=== PATIENT | male | born 1955 | race Caucasian/White ===

== ENCOUNTER 2020-07-01 06:52 | Outpatient (REF) | payer MEDICARE, SELFPAY ==
[2020-07-01 11:24] LABS: Hematocrit 47.7 % (42-52); Hemoglobin 15.8 g/dl (14.0-18.0); Mean Corpuscular HGB Conc 33.1 g/dl (31.0-36.0); Mean Corpuscular Volume 90.7 fL (80-98); Mean Platelet Volume 11.9 fL (9.4-12.4); Platelet Count 243 X10*3/uL (160-400); Red Blood Count 5.26 X10*6/uL (4.60-5.80); Red Cell Distribution Width 12.9 % (11.0-16.0); White Blood Count 9.1 X10*3/uL (4.8-10.8)
[2020-07-01 12:03] LABS: Alanine Aminotransferase 24 U/L (0-40); Albumin Level 4.5 g/dL (3.5-5.0); Alkaline Phosphatase 66 U/L (39-117); Anion Gap 15 (12-20); Aspartate Amino Transferase 20 U/L (5-37); Blood Urea Nitrogen 14 mg/dL (9-16); Calcium 9.5 mg/dL (8.4-10.2); Carbon Dioxide 26 mmol/L (22-29); Chloride 107 mmol/L (96-108); Cholesterol 126 mg/dL; Estimated Glomerular Filt Rate > 60; Glucose Fasting 93 mg/dL (60-99); HDL Cholesterol 37 mg/dL; LDL Cholesterol Calculated 72 mg/dl; Potassium 4.2 mmol/L (3.3-5.1); Sodium 144 mmol/L (135-145); Total Protein 6.8 g/dL (6.5-8.0); Triglycerides 85 mg/dL
== END 2020-07-01 06:53 | disposition home or self-care (01) ==
LOC: HO.HMGCLDS 06:52
PROVIDERS: PCP Internal Medicine; Visit Provider Internal Medicine
DX: E78.5 Hyperlipidemia, unspecified (principal); I10 Essential (primary) hypertension; I48.91 Unspecified atrial fibrillation
CPT/HCPCS: 36415; 80053; 80061; 85027

== ENCOUNTER 2022-02-17 07:56 | Outpatient (REF) | payer MEDICARE, SELFPAY ==
[2022-02-17 11:25] LABS: MANUAL DIFF FLAG NO
[2022-02-17 11:45] LABS: Basophils Absolute Auto 0.1 X10*3/uL (0.0-0.2); Basophils Percent Auto 0.6 % (0-2); Eosinophils Absolute Auto 0.1 X10*3/uL (0.0-0.4); Eosinophils Percent Auto 1.2 % (0-4); Hematocrit 45.6 % (42.0-52.0); Hemoglobin 15.2 g/dl (14.0-18.0); Imm Gran Abs Auto 0.02 X10*3/uL (0.00-0.03); Imm Gran Pct Auto 0.3 % (0.0-0.4); Lymphocytes Absolute Auto 2.7 X10*3/uL (1.2-4.9); Lymphocytes Percent Auto 35.2 % (20-40); Mean Corpuscular HGB Conc 33.3 g/dl (31.0-36.0); Mean Corpuscular Hemoglobin 30.6 pg (27.0-33.0); Mean Corpuscular Volume 91.9 fL (80.0-98.0); Mean Platelet Volume 11.5 fL (9.4-12.4); Monocytes Absolute Auto 0.8 X10*3/uL (0.1-1.2); Neutrophils Absolute Auto 4.1 x10*3/uL (2.0-8.3); Neutrophils Percent Auto 52.7 % (45-73); Platelet Count 248 X10*3/uL (160-400); Red Blood Count 4.96 X10*6/uL (4.60-5.80); White Blood Count 7.7 X10*3/uL (4.8-10.8)
[2022-02-17 12:15] LABS: Alanine Aminotransferase 20 U/L (0-40); Albumin Level 4.3 g/dL (3.5-5.0); Alkaline Phosphatase 51 U/L (39-117); Anion Gap 16 (12-20); Aspartate Amino Transferase 19 U/L (5-37); Bilirubin Total 0.5 mg/dL (0.0-1.0); Blood Urea Nitrogen 14 mg/dL (9-16); Calcium 9.3 mg/dL (8.4-10.2); Carbon Dioxide 25 mmol/L (22-29); Chloride 106 mmol/L (96-108); Cholesterol 134 mg/dL; Estimated Glomerular Filt Rate > 60; Glucose Fasting 105 mg/dL (60-99); HDL Cholesterol 41 mg/dL; LDL Cholesterol Calculated 79 mg/dl; Potassium 4.9 mmol/L (3.3-5.1); Sodium 142 mmol/L (135-145); Total Protein 6.7 g/dL (6.5-8.0); Triglycerides 72 mg/dL
== END 2022-02-17 07:57 | disposition home or self-care (01) ==
LOC: HO.HMGCLDS 07:56
PROVIDERS: PCP Internal Medicine; Visit Provider Internal Medicine
DX: Z12.5 Encounter for screening for malignant neoplasm of prostate (principal); N40.0 Benign prostatic hyperplasia without lower urinary tract symptoms; E78.5 Hyperlipidemia, unspecified; I10 Essential (primary) hypertension
CPT/HCPCS: 36415; 80053; 80061; 84153; 85025

== ENCOUNTER 2022-12-25 08:45 | Outpatient (REF) | payer MEDICARE, SELFPAY ==
[2022-12-25 11:27] LABS: MANUAL DIFF FLAG NO
[2022-12-25 12:03] LABS: Basophils Percent Auto 0.5 % (0-2); Eosinophils Absolute Auto 0.1 X10*3/uL (0.0-0.4); Eosinophils Percent Auto 1.1 % (0-4); Hematocrit 48.5 % (42.0-52.0); Hemoglobin 15.8 g/dl (14.0-18.0); Imm Gran Abs Auto 0.03 X10*3/uL (0.00-0.03); Imm Gran Pct Auto 0.4 % (0.0-0.4); Lymphocytes Absolute Auto 2.4 X10*3/uL (1.2-4.9); Lymphocytes Percent Auto 28.9 % (20-40); Mean Corpuscular HGB Conc 32.6 g/dl (31.0-36.0); Mean Corpuscular Hemoglobin 29.8 pg (27.0-33.0); Mean Corpuscular Volume 91.5 fL (80.0-98.0); Mean Platelet Volume 11.4 fL (9.4-12.4); Monocytes Absolute Auto 0.7 X10*3/uL (0.1-1.2); Monocytes Percent Auto 8.6 % (2-11); Neutrophils Percent Auto 60.5 % (45-73); Platelet Count 229 X10*3/uL (160-400); Red Cell Distribution Width 13.1 % (11.0-16.0); White Blood Count 8.3 X10*3/uL (4.8-10.8)
[2022-12-25 12:42] LABS: Alanine Aminotransferase 21 U/L (0-40); Albumin Level 4.4 g/dL (3.5-5.0); Alkaline Phosphatase 58 U/L (39-117); Anion Gap 12 (12-20); Aspartate Amino Transferase 20 U/L (5-37); Bilirubin Total 0.7 mg/dL (0.0-1.0); Blood Urea Nitrogen 11 mg/dL (9-16); Calcium 10.3 mg/dL (8.4-10.2); Carbon Dioxide 26 mmol/L (22-29); Chloride 109 mmol/L (96-108); Cholesterol 125 mg/dL (<200); Estimated Glomerular Filt Rate > 60; Glucose Fasting 108 mg/dL (60-99); HDL Cholesterol 46 mg/dL (>40); LDL Cholesterol Calculated 66 mg/dL (<100); Sodium 142 mmol/L (135-145); Total Protein 7.3 g/dL (6.5-8.0); Triglycerides 69 mg/dL (<150)
== END 2022-12-25 08:46 | disposition home or self-care (01) ==
LOC: HO.HMGCLDS 08:45
PROVIDERS: PCP Internal Medicine; Visit Provider Internal Medicine
DX: Z00.00 Encounter for general adult medical examination without abnormal findings (principal); I10 Essential (primary) hypertension; I48.91 Unspecified atrial fibrillation; E78.5 Hyperlipidemia, unspecified
CPT/HCPCS: 36415; 80053; 80061; 85025

== ENCOUNTER 2022-12-26 07:51 | Outpatient (AMB) | payer MEDICARE, SELFPAY ==
[2022-12-26 08:00] VITALS: BP 124/70; PULSE 75; O2SAT 98; BMI 33.5
--- NOTE | 2022-12-26 08:00 | A.OFFPC_ITS ---
Vital Signs 12/26/22 08:00 Height 6 ft Weight 247 lb BMI 33.5 BP 124/70 Blood Pressure Location Lt brachial Position Sitting Pulse 75 Pulse Source Pulse Oximeter Pulse Oximetry (%) 98 Oxygen Delivery Method Room Air Intake Visit Reasons: Annual PE Intake Note: Pt is here today for PE. Allergies No Known Allergies Allergy (Verified 12/26/22 08:02) Medication List - Last Reconciled 12/26/22 by Carly Be MD apixaban (Eliquis) 5 mg PO BID finasteride 5 mg PO DAILY metoprolol succinate ER 50 mg PO DAILY rosuvastatin 10 mg PO BEDTIME tamsulosin 0.4 mg PO DAILY valsartan 80 mg PO DAILY Tobacco use date assessed: 12/26/22 Fall risk assessment: No Falls in past year Last assessed Fall Risk: 12/26/22 Dental Screening Dental Screen Date: 12/26/22 Did you have a dental visit in the last 12 months?: No Did you have a dental problem in the last 6 months where you did not have access to dental care?: No Was dental information given to patient?: Patient declined HPI Annual PE HPI Details Pt presents for PE. [facility] Medical History A-fib AAA (abdominal aortic aneurysm) (~01/03/21) BPH (benign prostatic hyperplasia) HTN (hypertension) Hyperlipidemia Normal colonoscopy CHIKA (obstructive sleep apnea) Surgical History H/O colonoscopy Family History Father No problems noted. 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 1. Little interest or pleasure in doing things: not at all 2. Feeling down, depressed, or hopeless: not at all 3. Trouble falling or staying asleep, or sleeping too much: not at all 4. Feeling tired or having little energy: not at all 5. Poor appetite or overeating: not at all 6. Feeling bad about yourself - or that you are a failure or have let yourself or your family down: not at all 7. Trouble concentrating on things, such as reading the newspaper or watching television: not at all 8. Moving or speaking so slowly that other people could have noticed. Or the opposite - being so fidgety or restless that you have been moving around a lot more than usual: not at all 9. Thoughts that you would be better off or of hurting yourself in some way: not at all Total score: 0 Depression Screening Interpretation: Negative Source: Developed by Drs. Dev Olivas, Lainey Duarte, Israel Edward and colleagues, with an educational bibi from [employer]. Thrive Questionnaire Date Thrive assessed: 12/26/22 I am a: Patient What is your living situation today?: I have a steady place to live Within the past 12 months, did the food you bought not last and you didn't have the money to get more?: Never true Within the past 12 months, did you worry whether your food would run out before you got money to buy more?: Never true Do you have trouble paying for medicines?: No Do you have trouble getting transportation to medical appointments?: No Do you have trouble paying your heating and electricity bill?: No Do you have trouble taking care of your child, family member or friend?: No Do you have trouble with day-to-day activities such as bathing, preparing meals, shopping, managing finances, etc.?: No Are you currently unemployed and looking for a job?: No Are you interested in more education?: No Please select the resources that you would like help with: None Currently or been in a relationship where the following occur: no concerns reported AUDIT C Alcohol Use Questionnaire (AUDIT-C) 1. How often do you have a drink containing alcohol?: Never 3. How often do you have six or more drinks on one occasion?: Never Total Score: 0 SILKE-7 AMB Questionnaire SILKE-7 Date SILKE - 7 assessed: 12/26/22 Feeling nervous, anxious, or on edge: 0 = Not at all Not being able to stop or control worryin = Not at all Worrying too much about different things: 0 = Not at all Trouble relaxin = Not at all Being so restless that it is hard to sit still: 0 = Not at all Becoming easily annoyed or irritable: 0 = Not at all Feeling afraid as if something awful might happen: 0 = Not at all Total SILKE-7 score (0-4 normal; 5-9 mild; 10-14 moderate; 15-21 severe): 0 Source: Developed by Drs. Dev Olivas, Lainey Duarte, Israel Edward and colleagues, with an educational bibi from [employer]. Review of Systems Const All systems reviewed & are unremarkable except as noted in HPI and below Reports no additional complaints Eyes Reports no additional complaints ENT Reports no additional complaints Card Reports no additional complaints Resp Reports no additional complaints GI Reports no additional complaints Reports no additional complaints Musc Reports no additional complaints Physical exam (Primary Care) Vital Signs: Last Vital Signs Pulse 75 12/26/22 08:00 BP 124/70 12/26/22 08:00 Pulse Ox 98 12/26/22 08:00 Oxygen Delivery Method Room Air 12/26/22 08:00 BMI result Body Mass Index 33.5 Tobacco/Smoking Status: Tobacco use Status Tobacco use date assessed 12/26/22 12/26/22 08:02 Patient Tobacco Use Status Former Tobacco user 12/26/22 08:02 e-Cigarette/Vaping Use Never Used 12/26/22 08:02 PHQ-9: PHQ-9 Score PHQ-9: Total score 0 12/26/22 08:09 Depression Screening Interpretation: Negative Thrive Assessment: Date of Thrive Assessment Date Thrive assessed 12/26/22 12/26/22 08:09 Currently or been in a relationship where the following occur: no concerns reported Const General: no acute distress HENMT Head: Yes normal to inspection Ears: hearing grossly normal bilaterally Face and sinus: Yes normal facial exam Mouth: Normal oral and palatal mucosa present Throat: Yes posterior oropharynx normal Eyes General: appearance normal, both eyes and all related structures Neck Neck: Yes no lymphadenopathy and Yes supple Resp Effort & Inspection: normal respiratory effort Auscultation: clear to auscultation bilaterally Cardio Rhythm: regular rhythm Heart sounds: S1 normal heart sound present and S2 normal heart sound present GI Inspection: Yes normal to inspection Palpation (GI): Soft to palpation Percussion: Yes normal to percussion Auscultation: normal bowel sounds Assessment and Plan Assessment & Plan (1) Dysplastic nevus: Code(s): D23.9 - Other benign neoplasm of skin, unspecified Plan: refer to Dermatology (2) AAA (abdominal aortic aneurysm): Onset Date: ~01/03/21 Comment: US 02/2020 3.1 cm recheck 3 yrs Code(s): I71.4 - Abdominal aortic aneurysm, without rupture Plan: check US (3) Annual physical exam: Code(s): Z00.00 - Encounter for general adult medical examination without abnormal findings Plan: Well-balanced diet regular exercise discussed with the patient. (4) HTN (hypertension): Code(s): I10 - Essential (primary) hypertension Plan: Continue current medications (5) A-fib: Comment: Dr. Debra Santoro Code(s): I48.91 - Unspecified atrial fibrillation Plan: Continue current medications and follow-up with [facility] (6) Hyperlipidemia: Code(s): E78.5 - Hyperlipidemia, unspecified Plan: Continue statin, return for physical in 1 year with fasting labs before Orders: Orders US abdominal aortic aneurysm Today I71.4 - Abdominal aortic aneurysm, without rupture Comprehensive [place]. Panel Fast 365 Days E78.5 - Hyperlipidemia, unspecified, I10 - Essential (primary) hypertension, I48.91 - Unspecified atrial fibrillation, Z00.00 - Encounter for general adult medical examination without abnormal findings Complete Blood Count Auto Diff 365 Days E78.5 - Hyperlipidemia, unspecified, I10 - Essential (primary) hypertension, I48.91 - Unspecified atrial fibrillation, Z00.00 - Encounter for general adult medical examination without abnormal findings Lipid Panel 365 Days E78.5 - Hyperlipidemia, unspecified, I10 - Essential (primary) hypertension, I48.91 - Unspecified atrial fibrillation, Z00.00 - Encounter for general adult medical examination without abnormal findings TSH reflex Free T4 365 Days E78.5 - Hyperlipidemia, unspecified, I10 - Essential (primary) hypertension, I48.91 - Unspecified atrial fibrillation, Z00.00 - Encounter for general adult medical examination without abnormal findings Referrals Dermatology Referral D23.9 - Other benign neoplasm of skin, unspecified Medications: Refilled apixaban (Eliquis) 5 mg PO BID 180 tabs 3RF finasteride 5 mg PO DAILY 90 tabs 3RF metoprolol succinate ER 50 mg PO DAILY 90 tabs 3RF rosuvastatin 10 mg PO BEDTIME 90 tabs 3RF tamsulosin 0.4 mg PO DAILY 90 caps 3RF valsartan 80 mg PO DAILY 90 tabs 3RF Coding Level of Care Code Est Pt Prev Care >65y(87401) Diagnoses Dysplastic nevus D23.9 AAA (abdominal aortic aneurysm) I71.4 Annual physical exam Z00.00 HTN (hypertension) I10 A-fib I48.91 Hyperlipidemia E78.5
== END 2022-12-26 08:41 | disposition home or self-care (01) ==
PROVIDERS: Visit Provider Internal Medicine
DX: Z00.00 Encounter for general adult medical examination without abnormal findings (principal); I71.40 Abdominal aortic aneurysm, without rupture, unspecified; I10 Essential (primary) hypertension; I48.91 Unspecified atrial fibrillation; D23.9 Other benign neoplasm of skin, unspecified; E78.5 Hyperlipidemia, unspecified
CPT/HCPCS: 99397

== ENCOUNTER 2023-02-22 08:14 | Outpatient (REF) | payer MEDICARE, SELFPAY ==
--- NOTE | ~2023-02-22 | US_ITS ---
EXAMINATION: US RETROPERITONEAL LIMITED (AORTA) CLINICAL INFORMATION: Abdominal aortic aneurysm without rupture. Family history of abdominal aortic aneurysm, male >65, tobacco dependence. COMPARISON: None available. TECHNIQUE: [place]una-scale, color Doppler and spectral Doppler evaluation of the abdominal aorta. FINDINGS: The aorta is atherosclerotic. The measurements of the aorta in maximum AP and transverse dimensions respectively are as follows: Proximal: 2.6 x 2.5 cm. Mid: 2.0 x 2.0 cm. Distal: 1.8 x 1.7 cm. PSV: 80.4 cm/s. The measurements of the common iliac arteries in maximum AP and TRV dimensions are as follows: Right Common Iliac Artery: 1.2 x 1.1 cm. Left Common Iliac Artery: 1.2 x 1.2 cm. US/US abdominal aortic aneurysm IMPRESSION: Negative for abdominal aortic aneurysm.
== END 2023-02-22 08:15 | disposition home or self-care (01) ==
LOC: HO.HMGCX 08:14
PROVIDERS: PCP Internal Medicine; Visit Provider Internal Medicine
DX: I71.40 Abdominal aortic aneurysm, without rupture, unspecified (principal)
CPT/HCPCS: 76706

== ENCOUNTER 2023-09-07 07:23 | Outpatient (REF) | payer MEDICARE, SELFPAY | END 2023-09-07 07:24 | disposition home or self-care (01) | LOC: HO.HMGCLDS 07:23 | PROVIDERS: PCP Internal Medicine; Visit Provider Nurse Practitioner Family | DX: Z12.5 Encounter for screening for malignant neoplasm of prostate (principal); N40.1 Benign prostatic hyperplasia with lower urinary tract symptoms | CPT/HCPCS: 36415; 84153 ==

== ENCOUNTER 2023-09-28 08:07 | Day surgery (SDC) | payer MEDICARE, SELFPAY ==
[2023-09-26 14:43] VITALS: BMI 34.9
--- NOTE | 2023-09-27 09:35 | P.CONAN_ITS ---
Documented by User: Greta Pride NP 09/27/23 09:37 HPI - Anesthesia Eval Consult details Narrative: 68yo M for Colonoscopy Eliquis for afib PMFSH Active Problems Active Problems: All Active Problems Dysplastic nevus (Acute) Annual physical exam (Acute) Rhinitis (Acute) BPH (benign prostatic hyperplasia) (Acute) AAA (abdominal aortic aneurysm) (Acute ~01/03/21) HTN (hypertension) (Acute) Normal colonoscopy (Acute) CHIKA (obstructive sleep apnea) (Acute) A-fib (Acute) Hyperlipidemia (Acute) Past Medical History Medical History AAA (abdominal aortic aneurysm) (~01/03/21) Normal colonoscopy CHIKA (obstructive sleep apnea) A-fib Hyperlipidemia HTN (hypertension) BPH (benign prostatic hyperplasia) Family History Family History Father No problems noted. 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 Assessment and Plan Assessment Anesthesia Assessment: Chart Reviewed Documented by User: Pepito Abrams MD 09/28/23 09:24 [facility] Past Medical History Medical History AAA (abdominal aortic aneurysm) (~01/03/21) Normal colonoscopy CHIKA (obstructive sleep apnea) A-fib Hyperlipidemia HTN (hypertension) BPH (benign prostatic hyperplasia) Family History Family History Father No problems noted. 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 [employer] Cognitive needs: No Hearing needs: No Vision needs: Yes Meds Allergies Allergy/AdvReac Type Severity Reaction Status Date / Time No Known Allergies Allergy Verified 09/28/23 09:08 Home Medications ?Medication ?Instructions ?Recorded ?Confirmed ?Last Taken ?Type metoprolol succinate 50 mg 50 mg PO BEDTIME 09/28/23 09/28/23 Unknown History tablet,extended release 24 hr Exam Airway Mallampati Class: III TM Dist: >3cm Neck ROM: Full Denture: Upper and Lower Loose/Missing/Broken Teeth: Yes (edentulous) and No Heart: irr rhythm Lungs: cta Assessment and Plan Assessment Anesthesia Assessment: Anesthesia Plan Discussed Final Anesthetic Review Family History of Problems with Anesthesia: No History of Problems with Anesthesia: No NPO: Yes Final Preanesthetic Review: No Changes in Pt Med Stat, Meds/Allgs Chart Reviewed, Consent Obtained/Reviewed and Anes Risks/Benef Reviewed Patient Risk: Intermediate Procedure Risk: Intermediate Anesthetic Plan Anesthetic Plan: MAC: Disposition: Standard PACU
[2023-09-28 09:08] VITALS: BMI 34.7
[2023-09-28 09:30] VITALS: BP 157/99; PULSE 103; RESP 16; TEMP 36.8; O2SAT 97
[2023-09-28] MEDS: Lactated Ringers 1,000 ML 100 ML IVCONT (09:32)
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
--- NOTE | 2023-09-28 10:24 | MHC.SHP ---
Pre-Procedural Eval Section A - 24 Hr Update-Section A only Date of Service: 09/28/23 The patient is an INPATIENT: No Changes since office visit: No Cold of Flu in the past 2 weeks, No New Medical Problems, No Changes in Medication and No Patient answered all questions The patient has been examined within 24 hours of the surgical procedure. The History & Physical has been completed within 30 days and I have reviewed it.: Yes Section B - Complete if H&P > 30 days Chief Complaint: Encounter for screening for malignant neoplasm of Allergies: Allergies Allergy/AdvReac Type Severity Reaction Status Date / Time No Known Allergies Allergy Verified 09/28/23 09:08 Plan I have reviewed the history and physical and performed a pertinent physical examination on my patient. No changes have occurred unless specified. Time Spent With Patient Time: Total time managing care of this patient today ____ minutes.
[2023-09-28 11:01] VITALS: BP 110/77; PULSE 94; RESP 16; TEMP 36.4; O2SAT 95
[2023-09-28 11:16] VITALS: BP 128/83; PULSE 99; RESP 18; TEMP 36.4; O2SAT 95
--- NOTE | 2023-09-28 11:17 | OP_ITS ---
DATE OF SERVICE: 09/28/2023 SURGEON: Grupo Dover MD INDICATIONS: Colon cancer screening and prior history of adenomatous colon polyps. PREOPERATIVE DIAGNOSIS: POSTOPERATIVE DIAGNOSIS: PROCEDURE PERFORMED: Colonoscopy to the cecum with snare polypectomy. ESTIMATED BLOOD LOSS: COMPLICATIONS: ANESTHESIA: Monitored anesthesia care. ASSISTANTS: SPECIMENS: DESCRIPTION OF PROCEDURE: A history and physical was performed. The risks and benefits of the procedure were explained to the patient and informed consent was obtained. The patient was placed in the left lateral decubitus position. A digital rectal exam was performed and was found to be normal. The Olympus pediatric video colonoscope was introduced into the rectum and advanced to the cecum. The cecum was identified by transillumination, palpation, and identification of ileocecal valve. Examination was performed and the scope was removed. He tolerated the procedure well and was returned to the recovery are in stable condition. FINDINGS: The terminal ileum was not examined. The visualized colonic mucosa was within normal limits without evidence of masses or ulcers. There was some stool coating mucosa, which limited the sensitivity examination for detection of small polyps. A single polyp measuring approximately 8 mm were identified and removed in the cecum using a hot snare. No other polyps were identified. Retroflexed examination showed small internal hemorrhoids. Moderate diverticulosis involving the sigmoid was noted. IMPRESSION: Colon polyp. RECOMMENDATION: Follow up the biopsy results. MD KUMAR [place]/ASADL / [id number]
== END 2023-09-28 11:41 | disposition home or self-care (01) ==
PROVIDERS: PCP Internal Medicine; Visit Provider Internal Medicine Gastroenterology
PROC: 0DJD8ZZ Inspection of Lower Intestinal Tract, Via Natural or Artificial Opening Endoscopic (ICD-10-PCS; CPT 45378; principal; 2023-09-28 10:50)
DX: Z12.11 Encounter for screening for malignant neoplasm of colon (principal); D12.0 Benign neoplasm of cecum; K57.30 Diverticulosis of large intestine without perforation or abscess without bleeding; K64.8 Other hemorrhoids; Z86.010 Personal history of colon polyps; I10 Essential (primary) hypertension; E78.5 Hyperlipidemia, unspecified; I48.91 Unspecified atrial fibrillation; I71.40 Abdominal aortic aneurysm, without rupture, unspecified; Z79.01 Long term (current) use of anticoagulants; Z79.02 Long term (current) use of antithrombotics/antiplatelets; Z79.899 Other long term (current) drug therapy
CPT/HCPCS: 45385; 88305; J2704

== ENCOUNTER 2023-11-07 15:36 | Emergency (ER) | payer OTHER, MEDICARE, SELFPAY ==
[2023-11-07] VITALS (7 sets, daily range): BP systolic 159–190; BP diastolic 98–110; PULSE 83–100; RESP 12–22; TEMP 36.6–36.8; O2SAT 97–98; BMI 33.1
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
[2023-11-07] MEDS: Acetaminophen 325 MG TABLET 650 MG PO (16:47)
--- NOTE | 2023-11-07 17:02 | PC.NURSE ---
20g iv placed in [place], labs obtained and sent to lab. Pt resting in bed quietly, call rivas within reach
[2023-11-07 17:09] LABS: MANUAL DIFF FLAG NO
[2023-11-07 17:15] LABS: Basophils Absolute Auto 0.1 X10*3/uL (0.0-0.2); Basophils Percent Auto 0.4 % (0-2); Eosinophils Percent Auto 0.3 % (0-4); Hemoglobin 17.2 g/dl (14.0-18.0); Imm Gran Abs Auto 0.08 X10*3/uL (0.00-0.03); Imm Gran Pct Auto 0.6 % (0.0-0.4); Lymphocytes Percent Auto 7.5 % (20-40); Mean Corpuscular HGB Conc 33.1 g/dl (31.0-36.0); Mean Corpuscular Volume 90.8 fL (80.0-98.0); Mean Platelet Volume 11.1 fL (9.4-12.4); Monocytes Absolute Auto 0.7 X10*3/uL (0.1-1.2); Neutrophils Absolute Auto 11.8 x10*3/uL (2.0-8.3); Neutrophils Percent Auto 86.2 % (45-73); Platelet Count 205 X10*3/uL (160-400); Red Blood Count 5.73 X10*6/uL (4.60-5.80); Red Cell Distribution Width 12.7 % (11.0-16.0); White Blood Count 13.7 X10*3/uL (4.8-10.8)
[2023-11-07 17:24] LABS: Anion Gap 11 (12-20); Blood Urea Nitrogen 12 mg/dL (9-16); Calcium 10.3 mg/dL (8.4-10.2); Carbon Dioxide 26 mmol/L (22-29); Chloride 109 mmol/L (96-108); Creatinine Clr Calc Pharmacy 92.6; Estimated Glomerular Filt Rate > 60; Glucose Random 136 mg/dL (60-115); INTERNATIONAL NORM RATIO 1.1 (0.9-1.1); Potassium 4.4 mmol/L (3.3-5.1); Prothrombin Time 13.9 SEC (11.1-13.3); Sodium 142 mmol/L (135-145)
[2023-11-07 17:34] LABS: Troponin-I High Sensitivity < 2.7 ng/L (<3.5-35.0)
--- NOTE | 2023-11-07 17:56 | PC.NURSE ---
Medium sized lump on left upper shoulder/neck area, movable, not tender to the touch. MD notified
[2023-11-07] MEDS: Morphine Sulfate 4 MG/ML CARTRIDGE 2 MG IVPUSH (18:04)
[2023-11-07] MEDS: iohexoL 350 MG/ML 100 ML INFUS..BTL IV (19:03)
--- NOTE | 2023-11-07 19:56 | PC.NURSE ---
Assumed care of pt. Pt lying on stretcher. Findings with large hematoma on L neck/shoulder causing pain, mild abrasions on chest and lower extremities with pain on palpation to L upper chest, dressing on L de [place] rosa with skin tear identified by previous shift, towel roll around pt neck pending CT read for clearance. pt AxO x4.
[2023-11-07] MEDS: Morphine Sulfate 2 MG/ML CARTRIDGE IVPUSH ×2 (20:23→22:13)
--- NOTE | 2023-11-07 22:07 | PC.NURSE ---
Report called to Jf Aguirre RN, [facility].
== END 2023-11-07 22:19 | disposition short-term general hospital (02) ==
PROVIDERS: Emergency Provider Student in an Organized Health Care Education/Training Program; PCP Internal Medicine
DX: S12.400A Unspecified displaced fracture of fifth cervical vertebra, initial encounter for closed fracture (principal); V43.52XA Car driver injured in collision with other type car in traffic accident, initial encounter; W22.10XA Striking against or struck by unspecified automobile airbag, initial encounter; Y93.9 Activity, unspecified; Y92.410 Unspecified street and highway as the place of occurrence of the external cause; Y99.9 Unspecified external cause status; R07.9 Chest pain, unspecified; M54.9 Dorsalgia, unspecified; I10 Essential (primary) hypertension; I71.40 Abdominal aortic aneurysm, without rupture, unspecified; I48.91 Unspecified atrial fibrillation; N40.0 Benign prostatic hyperplasia without lower urinary tract symptoms; E78.5 Hyperlipidemia, unspecified; Z79.899 Other long term (current) drug therapy
CPT/HCPCS: 36415; 70450; 71260; 72125; 74177; 80048; 84484; 85025; 85610; 93005; 96374; 96376; 99285; J2270; Q9967

== ENCOUNTER → 2023-11-07 16:23 | Outpatient (BNV) | payer MEDICARE, SELFPAY | PROVIDERS: Emergency Provider Student in an Organized Health Care Education/Training Program; PCP Internal Medicine; Visit Provider Internal Medicine | DX: I48.91 Unspecified atrial fibrillation (principal) | CPT/HCPCS: 93010 ==

== ENCOUNTER 2023-11-19 10:56 | Outpatient (AMB) | payer OTHER, MEDICARE, SELFPAY ==
[2023-11-19 11:15] VITALS: BP 118/74; PULSE 98; O2SAT 97; BMI 31.5
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
== END 2023-11-19 13:17 | disposition home or self-care (01) ==
PROVIDERS: PCP Internal Medicine; Visit Provider Internal Medicine
DX: M25.512 Pain in left shoulder (principal); I48.91 Unspecified atrial fibrillation; I71.40 Abdominal aortic aneurysm, without rupture, unspecified; S10.93XA Contusion of unspecified part of neck, initial encounter; I10 Essential (primary) hypertension
CPT/HCPCS: 99214

== ENCOUNTER 2024-02-01 10:50 | Outpatient (AMB) | payer MEDICARE, SELFPAY ==
[2024-02-01 11:01] VITALS: BP 118/76; PULSE 63; O2SAT 98; BMI 31.9
--- NOTE | 2024-02-01 11:01 | A.OFFPC_ITS ---
Vital Signs 02/01/24 11:01 Height 6 ft 1 in Weight 242 lb BMI 31.9 BP 118/76 Blood Pressure Location Rt brachial Position Sitting Pulse 63 Pulse Source Pulse Oximeter Pulse Oximetry (%) 98 Oxygen Delivery Method Room Air Intake Visit Reasons: reschedule Intake Note: Pt is here today for PE. Pt states that he needs a refill on all of his meds. Allergies No Known Allergies Allergy (Verified 02/01/24 11:05) Medication List - Last Reconciled 02/01/24 by Carly Be MD apixaban (Eliquis) 5 mg PO BID finasteride 5 mg PO DAILY metoprolol succinate ER 50 mg PO BEDTIME rosuvastatin 10 mg PO BEDTIME tamsulosin 0.4 mg PO DAILY valsartan 160 mg PO DAILY Tobacco use date assessed: 02/01/24 Fall risk assessment: No Falls in past year Last assessed Fall Risk: 02/01/24 Dental Screening Dental Screen Date: 11/19/23 HPI reschedule HPI Details Pt presents for PE. HTN, hyperlipid, BPH, are stable on meds. [facility] Medical History (Updated 02/01/24 @ 11:56 by Carly Be MD) AAA (abdominal aortic aneurysm) (~01/03/21) Normal colonoscopy CHIKA (obstructive sleep apnea) A-fib Hyperlipidemia HTN (hypertension) BPH (benign prostatic hyperplasia) Surgical History H/O colonoscopy Family History Father No problems noted. 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 Cognitive needs: No Hearing needs: No Vision needs: Yes Questionnaire Thrive Questionnaire Date Thrive assessed: 11/19/23 I am a: Patient What is your living situation today?: I have a steady place to live Within the past 12 months, did the food you bought not last and you didn't have the money to get more?: Never true Within the past 12 months, did you worry whether your food would run out before you got money to buy more?: Never true Do you have trouble paying for medicines?: No Do you have trouble getting transportation to medical appointments?: No Do you have trouble paying your heating and electricity bill?: No Do you have trouble taking care of your child, family member or friend?: No Do you have trouble with day-to-day activities such as bathing, preparing meals, shopping, managing finances, etc.?: No Are you currently unemployed and looking for a job?: No Are you interested in more education?: No Please select the resources that you would like help with: None Currently or been in a relationship where the following occur: No concerns reported THRIVE Score: 0 SILKE-7 AMB Questionnaire SILKE-7 Date SILKE - 7 assessed: 11/19/23 Source: Developed by Drs. Dev Olivas, Lainey uDarte, Israel Edward and colleagues, with an educational bibi from [employer]. Review of Systems Const All systems reviewed & are unremarkable except as noted in HPI and below Eyes Reports no additional complaints ENT Reports no additional complaints Card Reports no additional complaints Resp Reports no additional complaints GI Reports no additional complaints Reports no additional complaints Physical exam (Primary Care) Vital Signs: Last Vital Signs Pulse 63 02/01/24 11:01 BP 118/76 02/01/24 11:01 Pulse Ox 98 02/01/24 11:01 Oxygen Delivery Method Room Air 02/01/24 11:01 BMI result Body Mass Index 31.9 Tobacco/Smoking Status: Tobacco use Status Tobacco use date assessed 02/01/24 02/01/24 11:06 Patient Tobacco Use Status Former Tobacco user 02/01/24 11:03 e-Cigarette/Vaping Use Never Used 02/01/24 11:03 Thrive Assessment: Date of Thrive Assessment Date Thrive assessed 11/19/23 02/01/24 11:03 Currently or been in a relationship where the following occur: No concerns reported Const General: no acute distress HENMT Head: Yes normal to inspection Ears: hearing grossly normal bilaterally Mouth: Normal oral and palatal mucosa present Throat: Yes posterior oropharynx normal Eyes General: appearance normal, both eyes and all related structures Neck Neck: Yes no lymphadenopathy and Yes supple Resp Effort & Inspection: normal respiratory effort Auscultation: clear to auscultation bilaterally Cardio Rhythm: regular rhythm Heart sounds: S1 normal heart sound present and S2 normal heart sound present GI Inspection: Yes normal to inspection Palpation (GI): Soft to palpation Percussion: Yes normal to percussion Auscultation: normal bowel sounds Assessment and Plan Assessment & Plan (1) HTN (hypertension): Code(s): I10 - Essential (primary) hypertension Plan: Continue current medications (2) Hyperlipidemia: Code(s): E78.5 - Hyperlipidemia, unspecified Plan: Continue rosuvastatin patient will have a fasting blood work today (3) A-fib: Comment: Dr. Debra Santoro Code(s): I48.91 - Unspecified atrial fibrillation Plan: Rate controlled on metoprolol and anticoagulated on Eliquis (4) Annual physical exam: Code(s): Z00.00 - Encounter for general adult medical examination without abnormal findings Plan: Well-balanced diet regular physical activity weight loss discussed with the patient he is up-to-date with colonoscopy. Patient will return in 1 year (5) AAA (abdominal aortic aneurysm): Onset Date: ~01/03/21 Comment: [place] 02/2020 3.1 cm rechecked 2023, stable Code(s): I71.4 - Abdominal aortic aneurysm, without rupture (6) CHIKA (obstructive sleep apnea): Comment: F/U [facility]-cpap Code(s): G47.33 - Obstructive sleep apnea (adult) (pediatric) Plan: Continue Cpap Orders: Orders Lipid Panel Today E78.5 - Hyperlipidemia, unspecified, I10 - Essential (primary) hypertension, I48.91 - Unspecified atrial fibrillation, Z00.00 - Encounter for general adult medical examination without abnormal findings Hemoglobin A1c Today E78.5 - Hyperlipidemia, unspecified, I10 - Essential (primary) hypertension, I48.91 - Unspecified atrial fibrillation, Z00.00 - Encounter for general adult medical examination without abnormal findings Lipid Panel 1 Year E78.5 - Hyperlipidemia, unspecified, I10 - Essential (primary) hypertension, I48.91 - Unspecified atrial fibrillation PSA,Total (Free>4and<10) 1 Year E78.5 - Hyperlipidemia, unspecified, I10 - Essential (primary) hypertension, I48.91 - Unspecified atrial fibrillation Comprehensive [place]. Panel Fast Today E78.5 - Hyperlipidemia, unspecified, I10 - Essential (primary) hypertension, I48.91 - Unspecified atrial fibrillation, Z00.00 - Encounter for general adult medical examination without abnormal findings Complete Blood Count Auto Diff Today E78.5 - Hyperlipidemia, unspecified, I10 - Essential (primary) hypertension, I48.91 - Unspecified atrial fibrillation, Z00.00 - Encounter for general adult medical examination without abnormal findings UA w Microscopic Today E78.5 - Hyperlipidemia, unspecified, I10 - Essential (primary) hypertension, I48.91 - Unspecified atrial fibrillation, Z00.00 - Encounter for general adult medical examination without abnormal findings Comprehensive [place]. Panel Fast 1 Year E78.5 - Hyperlipidemia, unspecified, I10 - Essential (primary) hypertension, I48.91 - Unspecified atrial fibrillation Complete Blood Count Auto Diff 1 Year E78.5 - Hyperlipidemia, unspecified, I10 - Essential (primary) hypertension, I48.91 - Unspecified atrial fibrillation Medications: New metoprolol succinate ER 50 mg PO BEDTIME 90 tabs 3RF Changed From valsartan 160 mg PO DAILY To valsartan 80 mg PO DAILY 90 tabs 3RF Refilled finasteride 5 mg PO DAILY 90 tabs 3RF apixaban (Eliquis) 5 mg PO BID 180 tabs 3RF rosuvastatin 10 mg PO BEDTIME 90 tabs 3RF tamsulosin 0.4 mg PO DAILY 90 caps 3RF Coding Level of Care Code Est Pt Prev Care >65y(75346) Diagnoses HTN (hypertension) I10 Hyperlipidemia E78.5 A-fib I48.91 Annual physical exam Z00.00 AAA (abdominal aortic aneurysm) I71.4 CHIKA (obstructive sleep apnea) G47.33
== END 2024-02-01 12:01 | disposition home or self-care (01) ==
PROVIDERS: PCP Internal Medicine; Visit Provider Internal Medicine
DX: Z00.00 Encounter for general adult medical examination without abnormal findings (principal); I48.91 Unspecified atrial fibrillation; I71.40 Abdominal aortic aneurysm, without rupture, unspecified; I10 Essential (primary) hypertension; E78.5 Hyperlipidemia, unspecified; G47.33 Obstructive sleep apnea (adult) (pediatric)

== ENCOUNTER → 2024-02-01 10:50 | Outpatient (BNVA) | payer OTHER, MEDICARE, SELFPAY | PROVIDERS: PCP Internal Medicine; Visit Provider Internal Medicine | DX: Z00.00 Encounter for general adult medical examination without abnormal findings (principal); I10 Essential (primary) hypertension; E78.5 Hyperlipidemia, unspecified; I48.91 Unspecified atrial fibrillation; I74.10 Embolism and thrombosis of unspecified parts of aorta; G47.33 Obstructive sleep apnea (adult) (pediatric); Z79.01 Long term (current) use of anticoagulants; Z79.899 Other long term (current) drug therapy; Z99.89 Dependence on other enabling machines and devices | CPT/HCPCS: 99397 ==

== ENCOUNTER 2024-02-04 08:56 | Outpatient (REF) | payer MEDICARE, SELFPAY ==
[2024-02-04 10:27] LABS: MANUAL DIFF FLAG NO
[2024-02-04 10:29] LABS: Basophils Absolute Auto 0.1 X10*3/uL (0.0-0.2); Basophils Percent Auto 0.6 % (0-2); Eosinophils Absolute Auto 0.1 X10*3/uL (0.0-0.4); Eosinophils Percent Auto 0.9 % (0-4); Hematocrit 45.6 % (42.0-52.0); Hemoglobin 15.3 g/dl (14.0-18.0); Imm Gran Abs Auto 0.03 X10*3/uL (0.00-0.03); Imm Gran Pct Auto 0.4 % (0.0-0.4); Lymphocytes Absolute Auto 2.3 X10*3/uL (1.2-4.9); Lymphocytes Percent Auto 29.7 % (20-40); Mean Corpuscular HGB Conc 33.6 g/dl (31.0-36.0); Mean Corpuscular Hemoglobin 30.5 pg (27.0-33.0); Mean Platelet Volume 11.3 fL (9.4-12.4); Monocytes Absolute Auto 0.6 X10*3/uL (0.1-1.2); Monocytes Percent Auto 8.1 % (2-11); Neutrophils Absolute Auto 4.7 x10*3/uL (2.0-8.3); Neutrophils Percent Auto 60.3 % (45-73); Platelet Count 254 X10*3/uL (160-400); Red Blood Count 5.01 X10*6/uL (4.60-5.80); Red Cell Distribution Width 12.9 % (11.0-16.0); White Blood Count 7.8 X10*3/uL (4.8-10.8)
[2024-02-04 10:35] LABS: Appearance Urine Clear; Color Urine Yellow; Glucose Urine UA Negative (Negative); Leukocyte Esterase Urine Negative (Negative); Nitrite Urine Negative (Negative); PH 5.5 (5.0-9.0); Urine Blood Negative (Negative); Urine Ketones Negative (Negative); Urine Protein Negative (Neg-Trace)
[2024-02-04 10:40] LABS: Bacteria Urine None Seen (None Seen); Hyaline Casts Urine 0-2 /LPF (0-2); RBC Urine 0-2 /HPF (0-2); Squamous Epithelial Cell Urine 0-2 /HPF (0-2); WBC Urine 0-5 /HPF (0-5)
[2024-02-04 10:50] LABS: Alanine Aminotransferase 19 U/L (0-40); Albumin Level 4.1 g/dL (3.5-5.0); Alkaline Phosphatase 64 U/L (39-117); Anion Gap 10 (12-20); Aspartate Amino Transferase 17 U/L (5-37); Bilirubin Total 0.7 mg/dL (0.0-1.0); Blood Urea Nitrogen 14 mg/dL (9-16); Calcium 9.5 mg/dL (8.4-10.2); Carbon Dioxide 25 mmol/L (22-29); Chloride 112 mmol/L (96-108); Cholesterol 130 mg/dL (<200); Estimated Glomerular Filt Rate > 60; Glucose Fasting 108 mg/dL (60-99); HDL Cholesterol 38 mg/dL (>40); LDL Cholesterol Calculated 77 mg/dL (<100); Potassium 4.6 mmol/L (3.3-5.1); Sodium 142 mmol/L (135-145); Total Protein 6.9 g/dL (6.5-8.0); Triglycerides 78 mg/dL (<150)
[2024-02-04 10:56] LABS: Estimated Average Glucose 108 mg/dL; Hemoglobin A1C 136.3113 umol/L; Hemoglobin A1c % 5.4 % (<6.0)
== END 2024-02-04 08:57 | disposition home or self-care (01) ==
LOC: HO.HMGCLDS 08:56
PROVIDERS: PCP Internal Medicine; Visit Provider Internal Medicine
DX: Z00.00 Encounter for general adult medical examination without abnormal findings (principal); I10 Essential (primary) hypertension; I48.91 Unspecified atrial fibrillation; E78.5 Hyperlipidemia, unspecified; Z13.1 Encounter for screening for diabetes mellitus
CPT/HCPCS: 36415; 80053; 80061; 81001; 83036; 85025

== ENCOUNTER 2024-03-03 10:00 | Outpatient (RCR) | payer OTHER, MEDICARE, SELFPAY ==
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
--- NOTE | 2024-03-03 10:47 | MHC.PT.PR ---
[facility] [place] Office [place] Office [place] Office [address] Aleta Garcia [address] [phone] F: [phone] F: [phone] F: [phone] F: [phone] Physical Therapy Progress Note Diagnosis: This is a 68 yo male presenting to skilled PT with a script for L shoulder pain. Date of Surgery: Date of Evaluation: 12/05/23 Treatments to Date: 13 Cancellations to Date: 0 No Shows to Date: 0 Subjective: No new updates Pain Score and Location: 5 L shoulder Objective Measures: Pain: 5/10, pain is located at the anterior GHJ, elbow, pain is described as discomfort, twisting my arm, and has a popping sensation that is uncomfortable AROM: flexion 135, abduction 115, ER 70 in 90, IR 35 in 90 abd MMT: flexion 4, abduction 4-, ER 4, IR 5 Assessment: 03/03: Patient has come to 13 sessions of PT. He has improved his ROM and strength however is concerned about crepitus that is noted with ROM and is especially noted with ER coming into IR and OH combo motions. He is going to [facility] for an initial evaluation. In PT we have been focusing on RTC strengthening, scapular engagement and posture. He has a good HEP with which he can continue on his own. He may benefit from updated imaging as he crepitus is concerning and limiting him functionally. PT Plan: Frequency and Duration: Treatment Plan: Therapeutic Exercise Dynamic Therapeutic Activities Neuromuscular Re-ed Manual Therapies Taping Home Exercise Program Patient Education Hot or Cold Pack Reviewed/ Agreed with Student Documentation: Therapist: Thank you once again for your referral.
--- NOTE | 2024-04-02 06:44 | MHC.PT.DC ---
[facility] [place] Office [place] Office [address] Aleta Garcia [address] [phone] F: [phone] F: [phone] F: [phone] F: [phone] Physical Therapy Discharge Report Diagnosis: This is a 68 yo male presenting to skilled PT with a script for L shoulder pain. Date of Surgery: Date of Evaluation: 12/05/23 Date of Discharge: 04/02/24 Treatments to Date: 13 Cancellations to Date: 0 No Shows to Date: 0 Discharge Status: Improved Function Independent with HEP Patient Elected to Stop Recommend MD Follow-up Discharge Summary: 03/03: Patient has come to 13 sessions of PT. He has improved his ROM and strength however is concerned about crepitus that is noted with ROM and is especially noted with ER coming into IR and OH combo motions. He is going to [facility] for an initial evaluation. In PT we have been focusing on RTC strengthening, scapular engagement and posture. He has a good HEP with which he can continue on his own. He may benefit from updated imaging as he crepitus is concerning and limiting him functionally. Electronically signed by: Kirsten Leigh PT Please sign and return to therapist. Thank you for your referral.
== END 2024-04-02 06:44 | disposition home or self-care (01) ==
LOC: HO.PTCHIC 10:00
PROVIDERS: PCP Internal Medicine; Visit Provider Internal Medicine
DX: M25.512 Pain in left shoulder (principal)
CPT/HCPCS: 97110; 97140; 97162; 97164

== ENCOUNTER 2024-03-05 10:06 | Outpatient (AMB) | payer MEDICARE, SELFPAY ==
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
== END 2024-03-05 10:39 | disposition home or self-care (01) ==
LOC: HO.HOS 10:07
PROVIDERS: PCP Internal Medicine; Visit Provider Orthopaedic Surgery
DX: M25.512 Pain in left shoulder (principal); M25.312 Other instability, left shoulder
CPT/HCPCS: 99203; G2211

== ENCOUNTER → 2024-03-05 10:06 | Outpatient (BNVA) | payer MEDICARE, SELFPAY | PROVIDERS: PCP Internal Medicine; Visit Provider Orthopaedic Surgery | DX: M25.512 Pain in left shoulder (principal); M25.312 Other instability, left shoulder | CPT/HCPCS: 99202 ==

== ENCOUNTER 2024-04-17 07:56 | Outpatient (REF) | payer MEDICARE, OTHER, SELFPAY ==
--- OUTSIDE RECORDS SUMMARY | 2024-04-17 07:58 | XMS_ITS ---
Author Organization [facility] Address [address] [place] [address] Care Team Providers Care Spa Director Name Role Phone Carly Be MD Primary Care Provider UnavailGrupo Gonzalez Jr [phone] REASON FOR VISIT pathology Encounters Encounter Location Date Provider Diagnosis [facility] [address] [place] [address] 10/08/2023 Grupo Dover Jr PLAN OF TREATMENT No Information
--- OUTSIDE RECORDS SUMMARY | 2024-04-17 07:59 | XMS_ITS ---
Author Organization [facility] Address [address] [place] [address] Care Team Providers Care Environmental Program Manager Name Role Phone Carly Be MD Primary Care Provider Grupo Waldrop Jr ALLERGIES No Known Allergies REASON FOR VISIT Patient presents today for a screening colonoscopy MEDICATIONS Medication SIG (Take, Route, Frequency, Duration) Notes Start Date End Date Status Tamsulosin HCl 0.4 MG Oral for 90 Active MiraLax (colon prep) 17 GM/SCOOP mixed with Gatorade or Crystal Light Orally begin at 5:00 p.m. the day before the procedure for 1 day 08/30/2023 Active Finasteride 5 MG Oral for 90 A ctive Rosuvastatin Calcium 10 MG Oral for 90 Active Valsartan 80 MG Oral for 90 Ac tive Eliquis 5 MG Oral for 90 Activ e Metoprolol Succinate ER 50 MG Oral for 90 Active PROBLEMS Problem Type ICD Code Onset Dates Problem Status W/U Status Risk SNOMED Code Notes Problem Personal history of colonic polyps (Z86.010) Active confirmed 665616149 Problem [facility] (current) use of anticoagulants (Z79.01) Active confirmed 580337137 VITAL SIGNS BMI 34.86 kg/m2 08/30/2023 Blood pressure systolic 00 mm Hg 08/30/19 24 Blood pressure diastolic 00 mm Hg 024 Height 71 in 08/30/2023 Weight 250 lbs 08/30/2023 Encounters Encounter Location Date Provider Diagnosis [facility] [address] [place] [address] 08/30/2023 Grupo Dover Jr Colon cancer screening Z12.11 ; 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 the day before the procedure for 1 day 08/30/2023 Future Test Test Name Order Date COLONOSCOPY 08/30/2023 Next Appt Details Follow Up: 1 Year, Reason: Progress Notes * Examination Category Sub-Category Detail Notes General Examination GENERAL APPEARANCE: in no ac malik distress HEAD: normocephalic EYES: sclera non-icteric NECK/THYROID: no lymphadenopathy HEART: S1, S2 normal, no mu rmurs CHEST: normal shape and exp ansion LUNGS: clear to auscultatio n bilaterally ABDOMEN: soft, nontender, non distended, bowel sounds present, no organomegaly SKIN: anicteric EXTREMITIES: no clubbing, cyanosi s, or edema PSYCH: cognitive function i ntact ORAL CAVITY: mucosa moist
--- OUTSIDE RECORDS SUMMARY | 2024-04-17 07:59 | XMS_ITS ---
Author Organization [facility] Address [address] [place] [address] Care Team Providers Care Sawmill Supervisor Name Role Phone Carly Be MD Primary Care Provider Grupo Waldrop Jr [phone] REASON FOR VISIT screening,hx polyps Encounters Encounter Location Date Provider Diagnosis [facility] Out[place] [address] [place] [phone] 09/28/2023 Grupo Dover Jr Encounter for screening colonoscopy Z12.11 ; Colon polyps K63.5 and Personal history of colonic polyps Z86.010 ASSESSMENTS Encounter Date Diagnosis Assessment Notes Treatment Notes Treatment Clinical Notes 09/28/2023 Encounter for screening colonoscopy (ICD-10 - Z12.11) 09/28/2023 Colon polyps (ICD-10 - K63.5) 09/28/2023 Personal history of colonic polyps (ICD-10 - Z86.010) PLAN OF TREATMENT No Information
--- OUTSIDE RECORDS SUMMARY | 2024-04-17 07:59 | XMS_ITS | Patient Health Record ---
Author Organization [facility] Address [address] [place] [address] Care Team Providers Care Ict Project Manager Name Role Phone Carly Be MD Primary Care Provider Grupo Waldrop Jr Unavailable ALLERGIES No Known Allergies RESULTS Component Value Reference Range Notes Pathology Reviewed date:10/08/2023 08:41:14 AM Interpretation: Performing Lab:[facility], [address] [place] [id number] Notes/Report: REASON FOR REFERRAL No Information MEDICATIONS Medication SIG (Take, Route, Frequency, Duration) [...] ER 50 MG Oral for 90 Active IMMUNIZATIONS Vaccine Route Administration Date Status Comme nts Influenza Unknown 02/04/2018 Administered SOCIAL HISTORY Sex Assigned At : Social History Observation Description Sex Assigned At Unknown PROBLEMS Problem Type ICD Code Onset Dates Problem Status W/U Status Risk SNOMED Code Notes Problem Colon cancer screening (Z12.11) Active confirmed 736294985 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) use of anticoagulants (Z79.01) Active confirmed 425585986 Problem Personal history of colonic polyps (Z86.010) Active confirmed 907986942 VITAL SIGNS Blood pressure diastolic 00 mm Hg 08/30/2023 Height 71 in 08/30/2023 Blood pressure systolic 00 mm Hg 08/30/2023 Weight 250 lbs 08/30/2023 BMI 34.86 kg/m2 08/30/2023 Encounters Encounter Location Date Provider Diagnosis [facility] [place] [address] [place], [place] [phone] 09/28/2023 Grupo Dover Jr Encounter for screening colonoscopy Z12.11 ; Colon polyps K63.5 and Personal history of colonic polyps Z86.010 [facility] [address] [place] [phone] 08/30/2023 Grupo Dover Jr Colon cancer screening Z12.11 ; correction (current) use of anticoagulants Z79.01 and Personal history of colonic polyps Z86.010 [facility] [address] [facility] [address] [place] [phone] 10/08/2023 Grupo Dover Jr ASSESSMENTS Encounter Date Diagnosis Assessment Notes Treatment Notes Treatment Clinical Notes 09/28/2023 Encounter for screening colonoscopy (ICD-10 - Z12.11) 09/28/2023 Colon polyps (ICD-10 - K63.5) 08/30/2023 Colon cancer screening (ICD-10 - Z12.11) 08/30/2023 correction (current) use of anticoagulants (ICD-10 - Z79.01) 09/28/2023 Personal history of colonic polyps (ICD-10 - Z86.010) 08/30/2023 Personal history of colonic polyps (ICD-10 - Z86.010) PLAN OF TREATMENT Future Test Test Name Order Date COLONOSCOPY 07/18/2012 COLONOSCOPY 06/13/2018 COLONOSCOPY 08/30/2023 Insurance Providers Payer Name Payer Address Payer Phone Subscriber Number Group Number Insured Name Patient Relationship to Insured Coverage Start Date Coverage End Date [facility] [address] [place] [phone] [id number] KING SOLANO Self - patient is the insured MEDICAL (GENERAL) HISTORY Medical History History ICD Code colonoscopy 09/22, normal, fi ve-year followup because of personal history of colon polyps. hypertension pilonidal cyst BPH Afib Surgical History Surgery Date(Month/Year) cyst removed from back
== END 2024-04-17 07:57 | disposition home or self-care (01) ==
LOC: HO.MRI 07:56
PROVIDERS: PCP Internal Medicine; Visit Provider Orthopaedic Surgery
DX: M25.312 Other instability, left shoulder (principal)
CPT/HCPCS: 73221

== ENCOUNTER 2024-05-22 14:34 | Outpatient (AMB) | payer OTHER, SELFPAY ==
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
== END 2024-05-22 14:57 | disposition home or self-care (01) ==
PROVIDERS: PCP Internal Medicine; Visit Provider Orthopaedic Surgery
DX: M25.312 Other instability, left shoulder (principal)
CPT/HCPCS: 99213; G2211

== ENCOUNTER 2024-07-22 11:01 | Outpatient (REF) | payer OTHER, MEDICARE, SELFPAY ==
--- NOTE | ~2024-07-22 | XR_ITS ---
EXAMINATION: XR HAND, RIGHT CLINICAL INFORMATION: Right hand pain. COMPARISON: None available. TECHNIQUE: PA, lateral, and oblique views of the right hand. FINDINGS: No acute cortical disruption or malalignment. No lytic or blastic lesions. There is preservation of the joint spaces. No subchondral cyst formation. XR/XR hand RT min 3V IMPRESSION: No gross abnormality. Electronically signed by: Flip Zambrano MD 07/23/2024 07:57 AM EDT
--- NOTE | ~2024-07-22 | XR_ITS ---
EXAMINATION: XR ELBOW, RIGHT CLINICAL INFORMATION: M77.11 - Lateral epicondylitis, right elbow COMPARISON: None available. TECHNIQUE: AP, lateral, and oblique views of the right elbow. FINDINGS: No acute cortical disruption or malalignment. No joint effusion. Small 4 mm well-corticated calcifications in the mediolateral aspect of the epicondyles, right humerus. XR/XR elbow RT min 3V IMPRESSION: No acute fracture or dislocation. 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 Electronically signed by: Flip Zambrano MD 07/23/2024 07:59 AM EDT
== END 2024-07-22 11:02 | disposition home or self-care (01) ==
LOC: HO.HMGCX 11:01
PROVIDERS: PCP Internal Medicine; Visit Provider Internal Medicine
DX: G56.01 Carpal tunnel syndrome, right upper limb (principal); M77.11 Lateral epicondylitis, right elbow; I10 Essential (primary) hypertension; I48.91 Unspecified atrial fibrillation
CPT/HCPCS: 73080; 73130; 96127

== ENCOUNTER 2024-07-22 11:01 | Outpatient (AMB) | payer OTHER, MEDICARE, SELFPAY ==
[2024-07-22 11:06] VITALS: BP 118/78; PULSE 85; RESP 20; TEMP 36.6; O2SAT 97; BMI 32.6
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
--- OUTSIDE RECORDS SUMMARY | 2024-07-22 13:17 | XMS_ITS ---
Author Organization [facility] Address [address] [place] [phone] Care Team Providers Care Superintendent General Name Role Phone [place] FROST, Carly Primary Care Provider Grupo Waldrop Jr REASON FOR VISIT screening,hx polyps Encounters Encounter Location Date Provider Diagnosis [facility] [address] [place] [phone] 09/28/2023 Grupo Dover Jr Encounter for screening [...] Progress Notes * SACHI SOLANOO [birth year]OB:[birth year] (68 yo M)Acc No.[id number]:09/28/2023 COLON WITH MAC Patient:?KING SOLANO Provider:?Grupo Dover MD :1955???Age:68 Y???Sex:Male Noam e:09/28/2023 Address:[address] [place], [place] [phone] Pcp:Carly Be MD Subjective: * Chief Complaints: * ???1. Screening,hx polyps. * Medical History:? Objective: * Vitals:? Assessment: * Assessment: 1.?Encounter for screening c olonoscopy - Z12.11 (Primary)???2.?Colon polyps - K63.5???3.?Personal history of colonic polyps - Z86.010??? Plan: * Treatment: * Procedure Codes:?57618 LESIO N REMOVAL COLONOSCOPY * Preventive Medicine:? ??KINZA Screening:?Colonoscopy?Was interval between colonoscopies three years or more??Yes,?Was last colonoscopy performed three or more years ago??Yes.? * * The named appointment provid er may or may not be the originator of this progress note, and it is not deemed complete until electronically signed by the appointment provider. Sign off status: Pending * Provider:?Grupo Dover MD Date:?0 09/28/2023 Generated for Gregory reyes/Shawna/Nessitting on:?07/22/2024 01:17 PM EDT
--- OUTSIDE RECORDS SUMMARY | 2024-07-22 13:17 | XMS_ITS ---
Author Organization [facility] Address [address] [place] [address] Care Team Providers Care Orchard Hand Name Role Phone Carly Be MD Primary Care Provider Grupo Waldrop Jr [phone] Allergies No Known Allergies REASON FOR VISIT Patient presents today for a screening colonoscopy Medications Medication SIG (Take, Route, Frequency, Duration) Notes [...] ER 50 MG Oral for 90 Active Problems Problem Type SNOMED Code ICD Code Onset Dates Problem Status W/U Status Risk Notes Problem 348420887 Personal history of colonic polyps (Z86.010) Active confirmed Problem 667989965 skilled nursing (curre nt) use of anticoagulants (Z79.01) Active confirmed Vital Signs Blood pressure systolic 00 mm Hg 08/30/19 24 Blood pressure diastolic 00 mm Hg 024 Height 71 in 08/30/2023 Weight 250 lbs 08/30/2023 BMI 34.86 kg/m2 08/30/2023 Encounters Encounter Location Date Provider Diagnosis [facility] [address] [place] [address] 08/30/2023 Grupo Dover Jr Colon cancer screening Z12.11 ; 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 He understands these and agrees to proceed. He is advised stop Eliquis one week before the procedure. 08/30/2023 skilled nursing (current) use of anticoagulants (ICD-10 - Z79.01) We discussed colonoscopy today including risks and benefits. He understands these and agrees to proceed. He is advised stop Eliquis one week before the procedure. 08/30/2023 Personal history of colonic polyps (ICD-10 - Z86.010) We discussed colonoscopy today including risks and benefits. He understands these and agrees to proceed. He is advised stop Eliquis one week before the procedure. Plan Of Treatment Medication Medication Name Sig Start Date Stop Date Notes MiraLax (colon prep) 17 GM/SCOOP mixed with Gatorade or Crystal Light Orally begin at 5:00 p.m. the day before the procedure for 1 day 08/30/2023 Future Test Test Name Order Date COLONOSCOPY 08/30/2023 Next Appt Details Follow Up: 1 Year, Reason: Progress Notes * SACHI SOLANOO LDOB:[birth year] (68 yo M)Acc No.[id number]:08/30/2023 Progress Notes Patient:?SACHI SOLANOO L Provider:?Grupo Dover MD :1955???Age:68 Y???Sex:Male Noam e:08/30/2023 Address:[address] [place], [place] [address] Pcp:Carly Be MD Subjective: * Chief Complaints: * ???1. Patient presents today for a screening colonoscopy. * HPI: ???New symptom(s):? The patient is a pleasant 68-year-old man seen today for his preoperative colonoscopy visit. He has no complaints of rectal bleeding or change in his bowel habits. He does have a personal history of colon polyps and last underwent colonoscopy in 2019 which was normal. Five-year followup was recommended. * ROS:?General/Constitutional:?Change in appetite?denies.?Fatigue?denies.?ENT:?Patient denies?difficulty swallowing.?Respiratory:?Patient denies?shortness of breath.?Cardiovascular:?Patient denies?chest pain.?Gastrointestinal:?Comments?See HPI for details.?Genitourinary:?Difficulty urinating?denies.?Incontinence?denies.?Musculoskeletal:?Patient denies?muscle aches.?Skin:?Patient denies?pruritis.?Neurologic:?Patient denies?low back pain.?Psychiatric:?Patient denies?mental or physical abuse.? * Medical History:?Colonoscopy 09/22, normal, five-year followup because of personal history of colon polyps., Hypertension, Pilonidal cyst, BPH, Afib. * Surgical History:?cyst remov ed from back . * Family History:?Father: dece ased, diagnosed with Heart disease.?Mother: .? no known hx of colon ca polyps or liver ds. * Social History:?Tobacco Use:?Tobacco Use/Smoking?Are you a: former smoker , How long has it been since you last smoked?: > 10 years.?Drugs/Alcohol:?Alcohol Screen?Points: 0, Interpretation: Negative.?Miscellaneous:?Marital status: . 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 ???very occasional beer. * Medications:?Taking Metoprol ol Succinate ER 50 MG Tablet Extended Release 24 Hour Oral , Taking Eliquis 5 MG Tablet Oral , Taking Valsartan 80 MG Tablet Oral , Taking Rosuvastatin Calcium 10 MG Tablet Oral , Taking Finasteride 5 MG Tablet Oral , Taking Tamsulosin HCl 0.4 MG Capsule Oral , Discontinued Losartan Potassium 100 MG Tablet 1 tablet Orally Once a day, Discontinued Jennyfer 0.5-0.4 MG Capsule 1 capsule Orally Once a day, Discontinued Colyte with Flavor Packs 240 GM Solution Reconstituted As directed Orally Over the specified time., Medication List reviewed and reconciled with the patient * Allergies:?N.K.D.A. Objective: * Vitals:?Wt: 250 lbs, Ht: 71 in, BMI:34.86 Index, BP: 00/00 mm Hg. * Examination: ???General Examination: ?GENERAL APPEARANCE:?in no acute distress.?HEAD:?normocephalic.?EYES:?sclera non-icteric.?ORAL CAVITY:?mucosa moist.?NECK/THYROID:?no lymphadenopathy.?SKIN:?anicteric.?HEART:?S1, S2 normal, no murmurs.?LUNGS:?clear to auscultation bilaterally.?CHEST:?normal shape and expansion.?ABDOMEN:?soft, nontender, nondistended, bowel sounds present, no organomegaly .?EXTREMITIES:?no clubbing, cyanosis, or edema.?PSYCH:?cognitive function intact.? 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 We discussed colonoscopy tod ay including risks and benefits. He understands these and agrees to proceed. He is advised stop Eliquis one week before the procedure. Plan: * Treatment: 2.?Personal history of colonic polyps?Procedure: COLONOSCOPY (Ordered for 08/30/2023)* sched for 09/28/23 at 10:50 a mmacmiralax * Procedure Codes:?3017F COLOR ECTAL CA SCREEN DOC REV, G9903 Pt scrn tbco id as non user, G9744 PATIENT NOT ELIG D/T ACTIVE DX HTN * Preventive Medicine:? ??Counseling:?Care goal follow-up plan:?Above Normal BMI Follow-up?Giving encouragement to exercise,?BMI management provided?Yes.? * Follow Up:?1 Year * * Sign off status: Completed true * Provider:?Grupo Dover MD Date:?0 08/30/2023 Generated for Gregory reyes/Shawna/eTransmitting on:?07/22/2024 01:17 PM EDT History and Physical Notes * HPI (History of Present Illness) Category Sub-Category Detail Notes Category Not es New symptom(s) The patient i s a pleasant 68-year-old man seen today for his preoperative colonoscopy visit. He has no complaints of rectal bleeding or change in his bowel habits. He does have a personal history of colon polyps and last underwent colonoscopy in 2019 which was normal. Five-year followup was recommended. Examination Category Sub-Category Detail Notes Category Not es General Examination GENERAL APPEARANCE: in no acute di stress HEAD: normocephalic EYES: sclera non-icteric NECK/THYROID: no lymphadenopathy HEART: S1, S2 normal, no mu rmurs CHEST: normal shape and exp ansion LUNGS: clear to auscultatio n bilaterally ABDOMEN: soft, nontender, non distended, bowel sounds present, no organomegaly SKIN: anicteric EXTREMITIES: no clubbing, cyanosi s, or edema PSYCH: cognitive function i ntact ORAL CAVITY: mucosa moist
--- OUTSIDE RECORDS SUMMARY | 2024-07-22 13:17 | XMS_ITS ---
Author Organization [facility] Address [address] [place] [address] Care Team Providers Care Land Sales Agent Name Role Phone Carly Be MD Primary Care Provider Grupo Waldrop Jr REASON FOR VISIT pathology Encounters Encounter Location Date Provider Diagnosis [facility] [address] [place] [address] 10/08/2023 Grupo Dover Jr Plan Of Treatment No Information Progress Notes * KING SOLANO LDOB:[birth year] (68 yo M)Acc No.[id number]:10/08/2023 Patient:?KELTON SOLANOLANDO Garth :1955???Age:68 Y???Sex:Male Address:[address] [place] [address] * true * Date:? Generated for Carolieni amy/Shawna/eTransmitting on:?07/22/2024 01:17 PM EDT
--- OUTSIDE RECORDS SUMMARY | 2024-07-22 13:17 | XMS_ITS | Patient Health Record ---
Author Organization [facility] Address [address] [place] [address] Care Team Providers Care Product Applications Engineer Name Role Phone Carly Be MD Primary Care Provider Grupo Waldrop Jr Allergies No Known Allergies Results Component Value Reference Range Notes Pathology Reviewed date:10/08/2023 08:41:14 AM Interpretation: Performing Lab:[facility], [address] [place] [phone] Notes/Report: Name: King Hutton Age/Sex: 68/M : 1955 Unit#: [id number] Attend Dr: Grupo Dover MD Re09/28/23 Status : [facility] Location: [facility] Disch: SPEC : [id number] RECD : 09/28/23 STATUS: FADUMO WEEMS NUM: [id number] DARIELA: 09/28/23-[address] [facility] [address]: Grupo Dover MD ENTERED: 09/28/23-11 35 SP TYPE: Surgical OTHR DR: Carly Be MD ORDERED: HE Stain/3, Gross Micro L4 Diagnosis Colon, cecal polyp: Tubular adenoma; negative for high-grade dysplasia and carcinoma. Comment: Adenomatous crypts with cautery artifact are present at the base. Clinical History Pre-Op Dx: Screening Post-Op Dx: Colon polyp Microscopic Description Microscopic sections reviewed. Material Received Polyp cecum Gross Description Received in formalin labeled ?polyp cecum? is a 0.8 cm in greatest dimension velvety, hyperemic and conges jourdan pink-red papular tissue fragment. The resected base is inked and the specimen is sect ioned and entirely submitted in a cassette labeled A. CEDS Copies To: Carly Be MD [address] [place] [address] Dr. [place] [id number] Grupo Dover MD [address] [place] [address] [address] [place] [address] Signed (si gnature on file) Emi [place] 10/02/23 1610 END OF REPORT Reason For Referral No Information Medications Medication SIG (Take, Route, Frequency, Duration) [...] ER 50 MG Oral for 90 Active Immunizations Vaccine Route Administration Date Status Comme nts Influenza Unknown 02/04/2018 Administered Problems Problem Type SNOMED Code ICD Code Onset Dates Problem Status W/U Status Risk Notes Problem 338357212 Colon cancer screening (Z12.11) Active confirmed Problem 650489482 jail (curre nt) use of anticoagulants (Z79.01) Active confirmed Problem 121320169 Personal history of colonic polyps (Z86.010) Active confirmed Vital Signs Blood pressure diastolic 00 mm Hg 08/30/2023 Height 71 in 08/30/2023 Blood pressure systolic 00 mm Hg 08/30/2023 Weight 250 lbs 08/30/2023 BMI 34.86 kg/m2 08/30/2023 Encounters Encounter Location Date Provider Diagnosis [facility] Outpatient [address] [place] [phone] 09/28/2023 Grupo Dover Jr Encounter for screening colonoscopy Z12.11 ; Colon polyps K63.5 and Personal history of colonic polyps Z86.010 [facility] [address] [place] [address] 08/30/2023 Grupo Dover Jr Colon cancer screening Z12.11 ; 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 He understands these and agrees to proceed. He is advised stop Eliquis one week before the procedure. 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 He understands these and agrees to proceed. He is advised stop Eliquis one week before the procedure. 09/28/2023 Personal history of colonic polyps (ICD-10 - Z86.010) 08/30/2023 Personal history of colonic polyps (ICD-10 - Z86.010) We discussed colonoscopy today including risks and benefits. He understands these and agrees to proceed. He is advised stop Eliquis one week before the procedure. Plan Of Treatment Future Test Test Name Order Date COLONOSCOPY 07/18/2012 COLONOSCOPY 06/13/2018 COLONOSCOPY 08/30/2023 Insurance Providers Payer Name Payer Address Payer Phone Subscriber Number Group Number Insured Name Patient Relationship to Insured Coverage Start Date Coverage End Date [facility] [address] [place] [phone] [id number] KING HUTTON Self - patient is the insured Medical (General) History Medical History History ICD Code colonoscopy 09/22, normal, fi ve-year followup because of personal history of colon polyps. hypertension pilonidal cyst BPH Afib Surgical History Surgery Date(Month/Year) cyst removed from back
== END 2024-07-22 12:16 | disposition home or self-care (01) ==
PROVIDERS: PCP Internal Medicine; Visit Provider Internal Medicine
DX: G56.01 Carpal tunnel syndrome, right upper limb (principal); M77.11 Lateral epicondylitis, right elbow; I10 Essential (primary) hypertension; I48.91 Unspecified atrial fibrillation

== ENCOUNTER → 2024-07-22 11:57 | Outpatient (BNV) | payer OTHER, MEDICARE, SELFPAY | PROVIDERS: PCP Internal Medicine; Visit Provider Radiology Diagnostic Radiology | DX: M79.641 Pain in right hand (principal); M77.11 Lateral epicondylitis, right elbow | CPT/HCPCS: 73080; 73130 ==

== ENCOUNTER 2024-07-29 07:42 | Outpatient (REF) | payer MEDICARE, SELFPAY ==
--- OUTSIDE RECORDS SUMMARY | 2024-07-29 07:48 | XMS_ITS | Patient Health Record ---
Author Organization [facility] Address [address] [place] [address] Care Team Providers Care Yacht Captain Name Role Phone Carly Be MD Primary Care Provider Grupo Waldrop Jr Allergies No Known Allergies Results Component Value Reference Range Notes Pathology Reviewed date:10/08/2023 08:41:14 AM Interpretation: Performing Lab:[facility], [address] [place] [phone] Notes/Report: Name: King Hutton Age/Sex: 68/M : 1955 Unit#: [id number] Attend Dr: Grupo Dover MD Re09/28/23 Status : [facility] Location: [facility] Disch: SPEC : [id number] RECD : 09/28/23 STATUS: FADUMO WEEMS NUM: [id number] DARIELA: 09/28/23-[address] [facility] [address]: Grupo Dover MD ENTERED: 09/28/23-11 [...] A. CEDS Copies To: Carly Be MD [address] [place] [address] Dr. [place] [id number] Grupo Dover MD [address] [place] [address] [address] [place] [address] Signed (si gnature on file) Emi [place] 10/02/23 1610 END OF REPORT Reason For [...] Problem Status W/U Status Risk Notes Problem 624178898 Colon cancer screening (Z12.11) Active confirmed Problem 667744542 jail (curre nt) use of anticoagulants (Z79.01) Active confirmed Problem 969982343 Personal history of colonic polyps (Z86.010) Active confirmed Vital Signs Blood pressure diastolic 00 mm Hg 08/30/2023 Height 71 in 08/30/2023 Blood pressure systolic 00 mm Hg 08/30/2023 Weight 250 lbs 08/30/2023 BMI 34.86 kg/m2 08/30/2023 Encounters Encounter Location Date Provider Diagnosis [facility] [address] [place] [phone] 09/28/2023 Grupo Dover Jr Encounter for screening colonoscopy Z12.11 ; Colon polyps K63.5 and Personal history of colonic polyps Z86.010 [facility] [address] [place] [phone] 08/30/2023 Grupo Dover Jr Colon cancer screening Z12.11 ; emt intermediate (current) use of anticoagulants Z79.01 and Personal history of colonic polyps Z86.010 [facility] [address] [facility] [address] [place] [address] 10/08/2023 Grupo Dover Jr Assessments Encounter Date [...] Eliquis one week before the procedure. 08/30/2023 emt intermediate (current) use of anticoagulants (ICD-10 - Z79.01) [...] Insured Coverage Start Date Coverage End Date [facility] [address] [place] [phone] [id number] KING HUTTON Self - patient is the insured Medical (General) History Medical History History ICD Code colonoscopy 09/22, normal, fi ve-year followup because of personal history of colon polyps. hypertension pilonidal cyst BPH Afib Surgical History Surgery Date(Month/Year) cyst removed from back
--- OUTSIDE RECORDS SUMMARY | 2024-07-29 07:48 | XMS_ITS ---
Author Organization [facility] Address [address] [place] [address] Care Team Providers Care Physical Education Teacher Name Role Phone Carly Be MD Primary Care Provider Grupo Waldrop Jr REASON FOR VISIT pathology Encounters Encounter Location Date Provider Diagnosis [facility] [address] [place] [address] 10/08/2023 Grupo Dover Jr Plan Of Treatment No Information Progress Notes * KING SOLANO LDOB:[birth year] (68 yo M)Acc No.[id number]:10/08/2023 Patient:?KELTON SOLANOLANDO Garth :1955???Age:68 Y???Sex:Male Address:[address] [place] [address] * true * Date:? Generated for Carolinei amy/Shawna/eTransmitting on:?07/29/2024 07:47 AM EDT
--- OUTSIDE RECORDS SUMMARY | 2024-07-29 07:48 | XMS_ITS ---
Author Organization [facility] Address [address] [place] [address] Care Team Providers Care Packager Name Role Phone [place] FROST, Carly Primary Care Provider Grupo Waldrop Jr [phone] REASON FOR VISIT screening,hx polyps Encounters Encounter Location Date Provider Diagnosis [facility] Outpatient [address] [place] [phone] 09/28/2023 Grupo Dover Jr Encounter for screening [...] SACHI SOLANOO LDOB:[birth year] (68 yo M)Acc No.[id number]:09/28/2023 COLON WITH MAC Patient:?KING SOLANO Provider:?Grupo Dover MD :1955???Age:68 Y???Sex:Male Noam e:09/28/2023 Address:[address] [place], [place] [id number] Pcp:Carly Be MD Subjective: * Chief Complaints: * ???1. Screening,hx polyps. * Medical History:? Objective: * Vitals:? Assessment: * Assessment: 1.?Encounter for screening c olonoscopy - Z12.11 (Primary)???2.?Colon polyps - K63.5???3.?Personal history of colonic polyps - Z86.010??? Plan: * Treatment: * Procedure Codes:?05869 LESIO N REMOVAL COLONOSCOPY * Preventive Medicine:? [...] MD Date:?0 09/28/2023 Generated for Gregory reyes/Shawna/Nessitting on:?07/29/2024 07:47 AM EDT
--- OUTSIDE RECORDS SUMMARY | 2024-07-29 07:48 | XMS_ITS ---
Author Organization [facility] Address [address] [place] [address] Care Team Providers Care Custodial Maintenance Worker Name Role Phone Carly Be MD Primary Care Provider Grupo aWldrop Jr Allergies No Known Allergies REASON FOR VISIT [...] Problem Status W/U Status Risk Notes Problem 947449436 Personal history of colonic polyps (Z86.010) Active confirmed Problem 985548720 care home (curre nt) use of anticoagulants (Z79.01) Active confirmed Vital Signs Blood pressure systolic 00 mm Hg 08/30/19 24 Blood pressure diastolic 00 mm Hg 024 Height 71 in 08/30/2023 Weight 250 lbs 08/30/2023 BMI 34.86 kg/m2 08/30/2023 Encounters Encounter Location Date Provider Diagnosis [facility] [address] [place] [address] 08/30/2023 Grupo Dover Jr Colon cancer screening Z12.11 ; 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 He understands these and agrees to proceed. He is advised stop Eliquis one week before the procedure. 08/30/2023 care home (current) use of anticoagulants (ICD-10 - Z79.01) [...] SACHI SOLANOO LDOB:[birth year] (68 yo M)Acc No.[id number]:08/30/2023 Progress Notes Patient:?SACHI SOLANOO L Provider:?Grupo Dover MD :1955???Age:68 Y???Sex:Male Noam e:08/30/2023 Address:[address] [place], [place] [phone] Pcp:Carly Be MD Subjective: * Chief Complaints: [...] or edema.?PSYCH:?cognitive function intact.? 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
--- NOTE | 2024-07-29 07:50 | EMG_ITS ---
Right median and ulnar motor and sensory studies were performed. Right radial sensory and median and lateral antecubital brachial sensory studies were performed, and paraspinal muscles were tested with a needle. IMPRESSION: 1. Mild right median neuropathy across carpal tunnel. 2. Mild right ulnar neuropathy across cubital tunnel. MD ERIK Pizarro/SUNITA / [id number]
== END 2024-07-29 07:43 | disposition home or self-care (01) ==
LOC: HO.NEURO 07:42
PROVIDERS: PCP Internal Medicine; Visit Provider Internal Medicine
DX: G56.01 Carpal tunnel syndrome, right upper limb (principal); M77.11 Lateral epicondylitis, right elbow
CPT/HCPCS: 95886; 95910

== ENCOUNTER 2024-08-11 08:16 | Outpatient (AMB) | payer MEDICARE, SELFPAY ==
--- OUTSIDE RECORDS SUMMARY | 2024-08-11 08:37 | XMS_ITS | Patient Health Record ---
Author Organization [facility] Address [address] [place] [phone] Care Team Providers Care Fuel Tank Sealer And Tester Name Role Phone Carly Be MD Primary Care Provider Grupo Waldrop Jr [phone] Allergies No Known Allergies Results Component Value Reference Range Notes Pathology Reviewed date:10/08/2023 08:41:14 AM Interpretation: Performing Lab:[facility], [address] [place] [phone] Notes/Report: Name: King Hutton Age/Sex: 68/M : 1955 Unit#: [id number] Attend Dr: Grupo Dover MD Re09/28/23 Status : [facility] Location: [facility] Disch: SPEC : [id number] RECD : 09/28/23 STATUS: FADUMO WEEMS NUM: [id number] DARIELA: 09/28/23-1050 [facility] DR: Grupo Dover MD ENTERED: 09/28/23-11 35 [...] A. CEDS Copies To: Carly Be MD [address] [place] [address] [place]. [place] [id number] Grupo Dover MD [address] [place] [address] [id number] [place] [address] Signed (si gnature on file) Emi [place] 10/02/23 1610 END OF REPORT Reason For [...] Problem Status W/U Status Risk Notes Problem 904227044 Colon cancer screening (Z12.11) Active confirmed Problem 534176562 [facility]CI (curre nt) use of anticoagulants (Z79.01) Active confirmed Problem 793010363 Personal history of colonic polyps (Z86.010) Active confirmed Vital Signs Blood pressure diastolic 00 mm Hg 08/30/2023 Height 71 in 08/30/2023 Blood pressure systolic 00 mm Hg 08/30/2023 Weight 250 lbs 08/30/2023 BMI 34.86 kg/m2 08/30/2023 Encounters Encounter Location Date Provider Diagnosis [facility] [address] [place] [phone] 09/28/2023 Grupo Dover Jr Encounter for screening colonoscopy Z12.11 ; Colon polyps K63.5 and Personal history of colonic polyps Z86.010 [facility] [address] [facility] [address] [place] [phone] 08/30/2023 Grupo Dover Jr Colon cancer screening Z12.11 ; [facility]CI (current) use of anticoagulants Z79.01 and Personal history of colonic polyps Z86.010 [facility] [address] [facility] [address] [place] [phone] 10/08/2023 Grupo Dover Jr Assessments Encounter Date [...] Eliquis one week before the procedure. 08/30/2023 [facility] (current) use of anticoagulants (ICD-10 - Z79.01) [...] Insured Coverage Start Date Coverage End Date [facility] [address] [place] [phone] [id number] KING HUTTON Self - patient is the insured Medical (General) History Medical History History ICD Code colonoscopy 09/22, normal, fi ve-year followup because of personal history of colon polyps. hypertension pilonidal cyst BPH Afib Surgical History Surgery Date(Month/Year) cyst removed from back
--- OUTSIDE RECORDS SUMMARY | 2024-08-11 08:38 | XMS_ITS ---
Author Organization [facility] Address [address] [place] [address] Care Team Providers Care Billing Representative Name Role Phone Carly Be MD Primary Care Provider Grupo Waldrop Jr REASON FOR VISIT pathology Encounters Encounter Location Date Provider Diagnosis [facility] [address] [place] [address] 10/08/2023 Grupo Dover Jr Plan Of Treatment No Information Progress Notes * KING SOLANO LDOB:[birth year] (68 yo M)Acc No.[id number]:10/08/2023 Patient:?KELTON SOLANOLANDO Garth :1955???Age:68 Y???Sex:Male Address:[address] [place] [id number] * true * Date:? Generated for Printi amy/Shawna/eTransmitting on:?08/11/2024 08:37 AM EDT
--- OUTSIDE RECORDS SUMMARY | 2024-08-11 08:38 | XMS_ITS ---
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 (Z79.01) Active confirmed Vital Signs Blood pressure systolic 00 mm Hg 08/30/19 24 Blood pressure diastolic 00 mm Hg 024 Height 71 in 08/30/2023 Weight 250 lbs 08/30/2023 BMI 34.86 kg/m2 08/30/2023 Encounters Encounter Location Date Provider Diagnosis [facility] [address] [place] [address] 08/30/2023 Grupo Dover Jr Colon cancer screening Z12.11 ; 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 Assessment: * Assessment: 1.?FCI (current) use o f anticoagulants - Z79.01 [...] Dover MD Date:?0 08/30/2023 Generated for Carolinei may/Shawna/eTransmitting on:?08/11/2024 08:37 AM EDT History and Physical Notes * [...]
--- OUTSIDE RECORDS SUMMARY | 2024-08-11 08:38 | XMS_ITS ---
Author Organization [facility] Address [address] [place] [phone] Care Team Providers Care Casing Tier Name Role Phone [place] FROST, Carly Primary Care Provider Grupo Waldrop Jr REASON FOR VISIT screening,hx polyps Encounters Encounter Location Date Provider Diagnosis [facility] [place] Outpatient [address] [place] [phone] 09/28/2023 Grupo Dover Jr Encounter for screening [...] SACHI SOLANOO LDOB:[birth year] (69 yo M)Acc No.[id number]:09/28/2023 COLON WITH MAC Patient:?KING SOLANO Provider:?Grupo Dover MD :1955???Age:68 Y???Sex:Male Noam e:09/28/2023 Address:[address] [place], [place] [phone] Pcp:Carly Be MD Subjective: * Chief Complaints: * ???1. Screening,hx polyps. * Medical History:? Objective: * Vitals:? Assessment: * Assessment: 1.?Encounter for screening c olonoscopy - Z12.11 (Primary)???2.?Colon polyps - K63.5???3.?Personal history of colonic polyps - Z86.010??? Plan: * Treatment: * Procedure Codes:?44958 LESIO N REMOVAL COLONOSCOPY * Preventive Medicine:? [...] MD Date:?0 09/28/2023 Generated for Gregory reyes/Shawna/Nessitting on:?08/11/2024 08:37 AM EDT
--- NOTE | 2024-08-11 09:06 | AM.OFFWIN_ITS ---
Intake Vital Signs 08/11/24 09:13 Weight 247 lb BP 122/76 Blood Pressure Location Lt brachial Position Sitting Pulse 82 Pulse Source Pulse Oximeter Temp 97.8 F Temp Source Oral Pulse Oximetry (%) 96 Oxygen Delivery Method Room Air Intake Visit Reasons: EP blood in urine Intake Note: Patient here for blood in urine, burning sensation, bladder pain that he noticed on Sunday. Patient Tobacco Use Status: Former Tobacco user Allergies No Known Allergies Allergy (Verified 08/11/24 09:12) Do you need a note to return to daycare/school/sports/work: No HPI HPI Comments History of Present Illness Details History of Present Illness - The patient is a 69 year old male pres enting with blood in his urine, pain with urination and bladder pain. - Symptoms began 3 days ago, he also had some back pain but that resolved. - A fever was reported 3 days ago, the p atient did not take antipyretics, and the fever resolved in one day. - The patient has no history of kidney s tones but described sensations arpit to a blockage, with frequent urination and incomplete voiding. Physical Exam General: Cooperative, healthy appearing, comfortable, no acute distress and well developed Orientation: Patient oriented x3 Limitations: No limitations Head: Normal to inspection Ears: Hearing grossly normal bilaterally Nose: Normal External nose present Face and sinus: Normal facial exam Eyes: Appearance normal, both eyes and all related structures Neck: Normal visual inspection and Yes full ROM Respiratory: Normal respiratory effort and able to speak in complete sentences. Skin: No rashes or lesions noted Neuro: Patient oriented x3 Extremities: Normal to inspection [facility] Medical History (Updated 08/11/24 @ 09:24 by Lexi Espinoza PA-C) AAA (abdominal aortic aneurysm) (~01/03/21) Normal colonoscopy CHIKA (obstructive sleep apnea) A-fib Hyperlipidemia HTN (hypertension) BPH (benign prostatic hyperplasia) Surgical History H/O colonoscopy Family History Father No problems noted. 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 Cognitive needs: No Hearing needs: No Vision needs: Yes Review of Systems Const All systems reviewed & are unremarkable except as noted in HPI and below Physical Exam Vital Signs: Last Vital Signs Temp 97.8 F 08/11/24 09:13 Pulse 82 08/11/24 09:13 BP 122/76 08/11/24 09:13 Pulse Ox 96 08/11/24 09:13 Oxygen Delivery Method Room Air 08/11/24 09:13 Assessment & Plan Assessment & Plan (1) UTI (urinary tract infection): Code(s): N39.0 - Urinary tract infection, site not specified Qualifiers: Urinary tract infection type: acute cystitis Hematuria presence: with hematuria Plan: VSS, pt well appearing and PE unremarkable. Urinalysis showed 1+ leukocytes, 1+ protein, and 3+ blood in the urine. Will send culture. The patient was prescribed an antibiotic to address the urinary tract infection, to be taken twice daily for five days. This is expected to alleviate the hematuria, dysuria, and bladder pain. Continuous monitoring is advised, with instructions provided to seek immediate emergency care if fever develops, or pain worsens, indicating potential complications such as kidney stones. Patient education emphasized recognizing symptoms of kidney stone obstruction and understanding the need for potential emergency intervention. Follow-up with a primary care provider is recommended should hematuria persist after completing the antibiotic course. The prescription has been sent to [facility], and detailed instructions have been provided regarding when to seek further medical attention. Patient was informed and verbally consented to the use of an ambient scribe for clinic note documentation during this visit. Medications: New cefuroxime axetil 500 mg PO Q12H 10 tabs 0RF Coding Level of Care Code Est Pt Level 3 (21593) Diagnoses UTI (urinary tract infection) N39.0 Urinary tract infection type: acute cystitis Hematuria presence: with hematuria
[2024-08-11 09:13] VITALS: BP 122/76; PULSE 82; TEMP 36.6; O2SAT 96
== END 2024-08-11 09:25 | disposition home or self-care (01) ==
PROVIDERS: PCP Internal Medicine; Visit Provider Physician Assistant
DX: Z13.9 Encounter for screening, unspecified (principal); N39.0 Urinary tract infection, site not specified

== ENCOUNTER → 2024-08-11 08:16 | Outpatient (BNVA) | payer MEDICARE, SELFPAY | PROVIDERS: PCP Internal Medicine; Visit Provider Physician Assistant | DX: N39.0 Urinary tract infection, site not specified (principal) | CPT/HCPCS: 81003; 99212 ==

== ENCOUNTER 2024-08-29 08:19 | Outpatient (RCR) | payer MEDICARE, SELFPAY ==
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
--- NOTE | 2024-08-29 08:54 | MHC.OT.EP ---
[address] [phone] Occupational Therapy Plan of Care Patient Name: Michael Hutton Date of Evaluation: 08/29/24 Diagnosis: (R)carpal tunnel, lateral epicondylitis Pain Location: 3/10 pain at rest 6/10 pain during movement sharp pain that radiates down to the hand numbness/tingling, in all the fingers that is intermittent Pain Score: 6 Pain Scale Used: Numeric (0 - 10) Aggravating Factors: Alleviating Factors: Tylenol Assessment: Based on initial OT evaluation patient presents with impaired ROM, impaired strength, pain and impaired performance during self care tasks. Provocative testing revealed (+) Tineal's sign of the elbow, (+) Phalen's test, (+) Cozen's test consistent for carpal tunnel syndrome, and lateral epicondylitis. Quick DASH= 50% indicating patient's perception of impairment of UE during self care tasks. Due to the documented impairments it is recommended that patient receive skilled OT intervention in order to achieve his PLOF of (I) during self care tasks. Thank you for your referral. Frequency and Duration: The patient will be seen 2x a week for 4 weeks Short Term Goals: Patient will report decreased pain in (R)UE MET Patient will increase (R)manager sas strength to 70lbs. MET Patient will be (I) with elbow orthosis wear schedule PRN MET Prison Goals: Patient will be (I) with HEP MET Patient will decrease Quick DASH score by 25% MET Treatment Plan: Therapeutic Exercise Therapeutic Activity Home Exercise Program Splinting Patient Education Desensitization/Sensory Re-ed Edema Control ADL Training Ultrasound NMES Iontophoresis Paraffin Fluidotherapy MHP Cold Packs Joint Mobilization Soft Tissue Mobilization Kinesiotaping Other (see comments) Skilled OT eval and treat Electronically Signed By: Della Saucedo OTR/L Please Sign and return to therapist. Thank you once again for your referral.
== END 2024-08-29 08:53 | disposition home or self-care (01) ==
LOC: HO.OT 08:19
PROVIDERS: PCP Internal Medicine; Visit Provider Internal Medicine
DX: M77.11 Lateral epicondylitis, right elbow (principal); G56.01 Carpal tunnel syndrome, right upper limb
CPT/HCPCS: 97110; 97140; 97165

== ENCOUNTER 2024-10-07 09:06 | Outpatient (AMB) | payer OTHER, SELFPAY ==
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
--- OUTSIDE RECORDS SUMMARY | 2024-10-07 09:54 | XMS_ITS | Patient Health Record ---
Author Organization [facility] Address [address] [place] [phone] Care Team Providers Care In Home Sales Representative Name Role Phone Carly Be MD Primary Care Provider Grupo Waldrop Jr Allergies No Known Allergies Reason For Referral No Information Medications Medication [...] Problem Status W/U Status Risk Notes Problem 075153568 Colon cancer screening (Z12.11) Active confirmed Problem 041075711 assisted (curre nt) use of anticoagulants (Z79.01) Active confirmed Problem 935062864 Personal history of colonic polyps (Z86.010) Active confirmed Encounters Encounter Location Date Provider Diagnosis [facility] [address] [place] [phone] 10/08/2023 Grupo Dover Jr Plan Of Treatment Future Test Test Name Order Date COLONOSCOPY 07/18/2012 COLONOSCOPY 06/13/2018 COLONOSCOPY 08/30/2023 Insurance Providers Payer Name Payer Address Payer Phone Subscriber Number Group Number Insured Name Patient Relationship to Insured Coverage Start Date Coverage End Date [facility] [address] [facility] [phone] [id number] KING SOLANO Self - patient is the insured Medical (General) History Medical History History ICD Code colonoscopy 09/22, normal, fi ve-year followup because of personal history of colon polyps. hypertension pilonidal cyst BPH Afib Surgical History Surgery Date(Month/Year) cyst removed from back
== END 2024-10-07 09:34 | disposition home or self-care (01) ==
LOC: HO.HOS 09:06
PROVIDERS: PCP Internal Medicine; Visit Provider Orthopaedic Surgery
DX: M25.312 Other instability, left shoulder (principal)
CPT/HCPCS: 99213; G2211

== ENCOUNTER → 2024-10-21 07:36 | Outpatient (BNV) | payer OTHER, SELFPAY | PROVIDERS: PCP Internal Medicine; Visit Provider Radiology Diagnostic Radiology | DX: M25.312 Other instability, left shoulder (principal) | CPT/HCPCS: 73221 ==

== ENCOUNTER 2024-10-21 07:48 | Outpatient (REF) | payer MEDICARE, OTHER, SELFPAY ==
--- NOTE | ~2024-10-21 | MR_ITS ---
CLINICAL HISTORY: M25.312 - Other instability, left shoulder Exam: MRI of the left shoulder without intravenous contrast. Comparison: None. Findings: Extensive partial-thickness bursal surface tear of the distal supraspinatus tendon. There may be a pinhole full-thickness component of the far distal aspect allowing for fluid from the glenohumeral joint to extend to the subacromial/subdeltoid bursa. Moderate tendinopathy of the supraspinatus and infraspinatus tendons. No tendon retraction or muscle atrophy. Teres minor and subscapularis tendons are intact. No tears of the glenoid labrum. Specifically, no tear of the superior labrum or the anteroinferior labrum. The tendon of the long head of the biceps is appropriately positioned within the bicipital groove. There is a type 2 acromion. Moderate to severe degenerative change of the AC joint. Increased fluid within the subacromial/subdeltoid space. Impression: 1. Extensive partial-thickness bursal surface tear of the distal supraspinatus tendon with likely pinhole full-thickness component. No associated tendon retraction or muscle atrophy. 2. Supraspinatus and infraspinatus tendinopathy. 3. AC joint DJD. This document has been electronically signed by: Miguelangel Moe MD on 10/22/2024 09:21:47
--- OUTSIDE RECORDS SUMMARY | 2024-10-21 07:51 | XMS_ITS | Patient Health Record ---
Author Organization [facility] Address [address] [place] [address] Care Team Providers Care Core Setter Name Role Phone Carly Be MD Primary Care Provider Grupo Waldrop Jr Unavailable [phone] Allergies No Known Allergies Reason For Referral [...] Problem Status W/U Status Risk Notes Problem [id number] Colon cancer screening (Z12.11) Active confirmed Problem [id number] flag signalman (curre nt) use of anticoagulants (Z79.01) Active confirmed Problem [id number] Personal history of colonic polyps (Z86.010) Active confirmed Plan Of Treatment Future Test Test Name Order Date COLONOSCOPY 07/18/2012 COLONOSCOPY 06/13/2018 COLONOSCOPY 08/30/2023 Insurance Providers Payer Name Payer Address Payer Phone Subscriber Number Group Number Insured Name Patient Relationship to Insured Coverage Start Date Coverage End Date [facility] [address] [facility] [place] [address] [phone] [id number] KING SOLANO Self - patient is the insured Medical (General) History Medical History History ICD Code colonoscopy 09/22, normal, fi ve-year followup because of personal history of colon polyps. hypertension pilonidal cyst BPH Afib Surgical History Surgery Date(Month/Year) cyst removed from back
== END 2024-10-21 07:49 | disposition home or self-care (01) ==
LOC: HO.MRI 07:48
PROVIDERS: PCP Internal Medicine; Visit Provider Orthopaedic Surgery
DX: M25.312 Other instability, left shoulder (principal)
CPT/HCPCS: 73221

== ENCOUNTER 2024-11-18 14:23 | Outpatient (AMB) | payer OTHER, SELFPAY ==
[2024-11-18 14:28] VITALS: BP 138/72; PULSE 66; O2SAT 98; BMI 32.6
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
--- OUTSIDE RECORDS SUMMARY | 2024-11-18 15:38 | XMS_ITS | Encounter Summary ---
Author Organization [facility] Address [address] [place] [address] Care Team Providers Care Beaver Trapper Name Role Phone Carly Be MD Primary Care Provider [phone] Encounter Details Date Type Department Care Team (Late st Contact Info) Description 10/10/2024 Lab Requisition [facility] - Main Lab [address] [place] [address] Marietta Rodarte NP [address] [address] Benign prostatic hyperplasia with lower urinary tract symptoms Social History Tobacco Use Types Packs/Day Years Used Date Smoking Tobacco: Never Assessed Sex and Gender Information Value Date Recorded Sex Assigned at Not on file Legal Sex Male 6:12 PM EST Gender Identity Not on file Sexual Orientation Not on file documented as of this encounter Plan of Treatment Not on file documented as of this encounter Procedures Procedure Name Priority Date/Time Associated Diagnosis Comments PROSTATE SPECIFIC ANTIGEN DIAGNOSTIC Routine 10/10/2024 9:41 AM EDT Benign prostatic hyperplasia with lower urinary tract symptoms documented in this encounter Results * Prostate specific antigen diagnostic (10/10/2024 9:41 AM EDT) PSA 0.73 0.00 - 4.00 ng/mL LAB CHEMISTRY METHOD 10/10/2024 2:42 PM EDT [facility] Blood Venous blood specimen / Unknown 10/10/2024 9:41 AM EDT 10/10/2024 1:43 PM EDT Narrative [facility] - 10/10/2024 2:42 PM EDT The Siemens Advia Centaur Chemiluminescent Immunoassay is used. Results obtained with different assay methods or kits cannot be used interchangeably. Results cannot be interpreted as absolute evidence of the presence or absence of malignant disease. us Marietta Rodarte COIN MACHINE SUPERVISOR LAB BLOOD ORDERABLES Linda gibbons Result [facility] [address] [place] [address], documented in this encounter Visit Diagnoses Diagnosis Benign prostatic hyperplasia with lower urinary tract symptoms documented in this encounter Care Teams Beaver Trapper Relationship Specialty Start Date End Date Carly Be MD [address] [place] [address] PCP - General Internal Medicine 10/10/24 documented as of this encounter
== END 2024-11-18 14:44 | disposition home or self-care (01) ==
LOC: HO.HOS 14:24
PROVIDERS: PCP Internal Medicine; Visit Provider Orthopaedic Surgery
DX: M25.312 Other instability, left shoulder (principal)
CPT/HCPCS: 99213; G2211

== ENCOUNTER 2024-12-15 07:04 | Outpatient (AMB) | payer MEDICARE, SELFPAY ==
--- NOTE | 2024-12-15 07:23 | AM.OFFWIN_ITS ---
Intake Vital Signs 3 12/15/24 07:25 Height 6 ft 1 in Weight 239 lb BMI 31.5 Pulse 63 Pulse Source Pulse Oximeter Temp 98.0 F Temp Source Oral Pulse Oximetry (%) 98 Oxygen Delivery Method Room Air Intake Visit Reasons: EP Stung by bee, feet swelling/blistering Intake Note: presents with left ankle/foot swelling, redness, weeping s/p bee sting 2 days ago Patient Tobacco Use Status: Former Tobacco user Allergies No Known Allergies Allergy (Verified 12/15/24 07:27) Do you need a note to return to daycare/school/sports/work: No HPI HPI Comments 2 History of Present Illness0 Details 69 y/o Male patient who presents to the walk in clinic with c/o left ankle/foot swelling, redness, itching, burning and weeping after bee sting 2 days ago. Denies SOB, Wheezing, CP, nausea or vomiting. He has been applying Cold compress and elevating his foot. [facility] Medical History (Updated 12/15/24 @ 07:36 by Renu Cha NP) Hymenoptera reaction AAA (abdominal aortic aneurysm) (~01/03/21) Normal colonoscopy CHIKA (obstructive sleep apnea) A-fib Hyperlipidemia HTN (hypertension) BPH (benign prostatic hyperplasia) Surgical History H/O colonoscopy Family History Father No problems noted. 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 Cognitive needs: No Hearing needs: No Vision needs: Yes Review of Systems Const All systems reviewed & are unremarkable except as noted in HPI and below Physical Exam Vital Signs: Last Vital Signs Temp 98.0 F 12/15/24 07:25 Pulse 63 12/15/24 07:25 Pulse Ox 98 12/15/24 07:25 Oxygen Delivery Method Room Air 12/15/24 07:25 BMI result Body Mass Index 31.5 Const General: no acute distress Nutritional Appearance: obese Orientation/consciousness: patient oriented x3 Resp Effort & Inspection: normal respiratory effort Cardio Heart sounds: S1 normal heart sound present and S2 normal heart sound present Neuro General: patient oriented x3, gait normal and moves all extremities Extrem Ankle/foot/toe images: 2 1. Mild Tenderness, swelling only around the Ankle, oozing clear fluid and erythematous. Psych Speech and movement: Normal speech and movement present Assessment & Plan Assessment & Plan (1) Hymenoptera reaction: Code(s): T63.481A - Toxic effect of venom of other arthropod, accidental (unintentional), initial encounter Plan: Local reaction to Bee Venom Ordered Keflex for 5 days Ordered Prednisone to help with swelling Elevate Joint Cold compress NSAIDs for pain relief. Medications: New 2 cephalexin 500 mg PO BID 10 caps 0RF 5 days T63.481A - Toxic effect of venom of other arthropod, accidental (unintentional), initial encounter prednisone 20 mg PO DAILY 5 tabs 0RF T63.481A - Toxic effect of venom of other arthropod, accidental (unintentional), initial encounter Coding Level of Care Code Est Pt Level 4 (99923) Diagnoses Hymenoptera reaction T63.481A Time Spent (min) 20
[2024-12-15 07:25] VITALS: PULSE 63; TEMP 36.7; O2SAT 98; BMI 31.5
== END 2024-12-15 07:55 | disposition home or self-care (01) ==
PROVIDERS: PCP Internal Medicine; Visit Provider Nurse Practitioner Family
DX: T63.481A Toxic effect of venom of other arthropod, accidental (unintentional), initial encounter (principal)

== ENCOUNTER → 2024-12-15 07:04 | Outpatient (BNVA) | payer MEDICARE, OTHER, SELFPAY | PROVIDERS: PCP Internal Medicine; Visit Provider Nurse Practitioner Family | DX: T63.441A Toxic effect of venom of bees, accidental (unintentional), initial encounter (principal); Y92.9 Unspecified place or not applicable | CPT/HCPCS: 99212 ==

== ENCOUNTER 2025-02-03 09:58 | Outpatient (AMB) | payer MEDICARE, SELFPAY ==
--- OUTSIDE RECORDS SUMMARY | 2023-09-28 06:50 | XMS_ITS ---
Author Organization [facility] Address [address] [place] [phone] Care Team Providers Care Loan Associate Name Role Phone [place] FROST, Carly Primary Care Provider Grupo Waldrop Jr REASON FOR VISIT screening,hx polyps Encounters Encounter Location Date Provider Diagnosis [facility] Outpatient [address] [place] [phone] 09/28/2023 Grupo Dover Jr Encounter for screening [...] SACHI SOLANOO LDOB:[birth year] (69 yo M)Acc No.[id number]:09/28/2023 COLON WITH MAC Patient: KING ORDAZ Provider: Elieser Dover MD :1955 A ge:68 Y S ex:Male Date:09/28/2023 Address:[address] [place], [place] [phone] Pcp:Carly Be MD Subjective: * Chief Complaints: [...] 0 09/28/2023 Generated for Gregory reyes/Shawna/Nessitting on: 0 02/03/2025 10:57 AM EDT
--- NOTE | 2025-02-03 10:52 | MHC.PC.OV ---
Vital Signs 02/03/25 10:53 Height 6 ft 1 in Weight 246 lb BMI 32.5 BP 126/78 Blood Pressure Location Lt brachial Position Sitting Respiration 18 Pulse 82 Pulse Source Pulse Oximeter Temp 97.8 F Temp Source Oral Pulse Oximetry (%) 96 Oxygen Delivery Method Room Air Intake Visit Reasons: PE- see comments Intake Note: Pt is here today for PE. Allergies No Known Allergies Allergy (Verified 02/03/25 10:53) Medication List - Last Reconciled 02/03/25 by Craly Be MD apixaban (Eliquis) 5 mg PO BID finasteride 5 mg PO DAILY metoprolol succinate ER 50 mg PO BEDTIME rosuvastatin 10 mg PO BEDTIME tamsulosin 0.4 mg PO DAILY valsartan 80 mg PO DAILY Tobacco use date assessed: 02/03/25 Fall risk assessment: No Falls in past year Last assessed Fall Risk: 02/03/25 Dental Screening Dental Screen Date: 07/22/24 HPI PE- see comments HPI Details Pt presents for PE. Pt will have L shoulder tear repair in May. [facility] Medical History (Updated 02/03/25 @ 11:58 by Carly Be MD) Ascending aorta dilatation Hymenoptera reaction AAA (abdominal aortic aneurysm) (~01/03/21) Normal colonoscopy CHIKA (obstructive sleep apnea) A-fib Hyperlipidemia HTN (hypertension) BPH (benign prostatic hyperplasia) Surgical History H/O colonoscopy Family History Father No problems noted. 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 1. Little interest or pleasure in doing things: not at all 2. Feeling down, depressed, or hopeless: not at all 3. Trouble falling or staying asleep, or sleeping too much: not at all 4. Feeling tired or having little energy: not at all 5. Poor appetite or overeating: not at all 6. Feeling bad about yourself - or that you are a failure or have let yourself or your family down: not at all 7. Trouble concentrating on things, such as reading the newspaper or watching television: not at all 8. Moving or speaking so slowly that other people could have noticed. Or the opposite - being so fidgety or restless that you have been moving around a lot more than usual: not at all 9. Thoughts that you would be better off or of hurting yourself in some way: not at all Total score: 0 Depression Screening Interpretation: Negative Depression Screening Done: Yes Source: Developed by Drs. Dev Olivas, Lainey Duarte, Israel Edward and colleagues, with an educational bibi from [employer]. Thrive Questionnaire Date Thrive assessed: 02/03/25 I am a: Patient What is your living situation today?: I have a steady place to live Within the past 12 months, did the food you bought not last and you didn't have the money to get more?: Never true Within the past 12 months, did you worry whether your food would run out before you got money to buy more?: Never true Do you have trouble paying for medicines?: No Do you have trouble getting transportation to medical appointments?: No Do you have trouble paying your heating and electricity bill?: No Do you have trouble taking care of your child, family member or friend?: No Do you have trouble with day-to-day activities such as bathing, preparing meals, shopping, managing finances, etc.?: No Are you currently unemployed and looking for a job?: No Are you interested in more education?: No Please select the resources that you would like help with: None Currently or been in a relationship where the following occur: I choose not to answer THRIVE Score: 0 SILKE-7 AMB Questionnaire SILKE-7 Date SILKE - 7 assessed: 07/22/24 Feeling nervous, anxious, or on edge: 0 = Not at all Not being able to stop or control worryin = Not at all Worrying too much about different things: 0 = Not at all Trouble relaxin = Not at all Being so restless that it is hard to sit still: 0 = Not at all Becoming easily annoyed or irritable: 0 = Not at all Feeling afraid as if something awful might happen: 0 = Not at all Total SILKE-7 score (0-4 normal; 5-9 mild; 10-14 moderate; 15-21 severe): 0 Source: Developed by Drs. Dev Olivas, Lainey Duarte, Israel Edward and colleagues, with an educational bibi from [employer]. Review of Systems Const All systems reviewed & are unremarkable except as noted in HPI and below Eyes Reports no additional complaints ENT Reports no additional complaints Card Reports no additional complaints Resp Reports no additional complaints GI Reports no additional complaints Reports no additional complaints Musc Reports no additional complaints Physical exam (Primary Care) Vital Signs: Last Vital Signs Temp 97.8 F 02/03/25 10:53 Pulse 82 02/03/25 10:53 Resp 18 02/03/25 10:53 BP 126/78 02/03/25 10:53 Pulse Ox 96 02/03/25 10:53 Oxygen Delivery Method Room Air 02/03/25 10:53 BMI result Body Mass Index 32.5 Tobacco/Smoking Status: Tobacco use Status Tobacco use date assessed 02/03/25 02/03/25 10:55 Patient Tobacco Use Status Former Tobacco user 02/03/25 10:55 e-Cigarette/Vaping Use Never Used 02/03/25 10:55 PHQ-9: PHQ-9 Score PHQ-9: Total score 0 02/03/25 11:01 Depression Screening Interpretation: Negative Thrive Assessment: Date of Thrive Assessment Date Thrive assessed 02/03/25 02/03/25 10:55 Currently or been in a relationship where the following occur: I choose not to answer Const General: no acute distress HENMT Head: Yes normal to inspection Ears: hearing grossly normal bilaterally Face and sinus: Yes normal facial exam Throat: Yes posterior oropharynx normal Eyes General: appearance normal, both eyes and all related structures Neck Neck: Yes no lymphadenopathy and Yes supple Resp Effort & Inspection: normal respiratory effort Auscultation: clear to auscultation bilaterally Cardio Rhythm: regular rhythm Heart sounds: S1 normal heart sound present and S2 normal heart sound present GI Inspection: Yes normal to inspection Palpation (GI): Soft to palpation Percussion: Yes normal to percussion Auscultation: normal bowel sounds Coding Level of Care Code Est Pt Prev Care >65y([address]207) Diagnoses HTN (hypertension) I10 Hyperlipidemia E78.5 A-fib I48.91 AAA (abdominal aortic aneurysm) I71.4 Annual physical exam Z00.00 Ascending aorta dilatation I77.810 Normal colonoscopy Assessment & Plan Assessment & Plan (1) HTN (hypertension): Code(s): I10 - Essential (primary) hypertension Category: Medical Plan: Continue medications (2) Hyperlipidemia: Code(s): E78.5 - Hyperlipidemia, unspecified Category: Medical Plan: Continue statin (3) A-fib: Comment: rate controlled, on Eliquis Code(s): I48.91 - Unspecified atrial fibrillation Category: Medical Plan: Continue metoprolol and Eliquis (4) AAA (abdominal aortic aneurysm): Onset Date: ~01/03/21 Comment: US 02/2020 3.1 cm rechecked 2023, stable Code(s): I71.4 - Abdominal aortic aneurysm, without rupture Category: Medical Plan: Repeat ultrasound (5) Annual physical exam: Code(s): Z00.00 - Encounter for general adult medical examination without abnormal findings Category: Medical Plan: Well-balanced diet regular physical activity weight loss discussed with the patient. (6) Ascending aorta dilatation: Comment: 4 cm stable on Echo [address] chest 11/2023 [facility] Code(s): I77.810 - Thoracic aortic ectasia Category: Medical Plan: Obtain echocardiogram (7) Normal colonoscopy: Comment: NORMAL 2017 Dr. Hayward , rechecked 2023, Q 5 yrs hx polyp Category: Medical Plan: Follow-up with GI Orders: Orders Complete Blood Count Auto Diff Today E78.5 - Hyperlipidemia, unspecified, I10 - Essential (primary) hypertension, I48.91 - Unspecified atrial fibrillation, I71.4 - Abdominal aortic aneurysm, without rupture, Z00.00 - Encounter for general adult medical examination without abnormal findings Lipid Panel Today E78.5 - Hyperlipidemia, unspecified, I10 - Essential (primary) hypertension, I48.91 - Unspecified atrial fibrillation, I71.4 - Abdominal aortic aneurysm, without rupture, Z00.00 - Encounter for general adult medical examination without abnormal findings CA echo transthoracic complete Today E78.5 - Hyperlipidemia, unspecified, I10 - Essential (primary) hypertension, I48.91 - Unspecified atrial fibrillation, I71.4 - Abdominal aortic aneurysm, without rupture, Z00.00 - Encounter for general adult medical examination without abnormal findings Comprehensive [place]. Panel Fast Today E78.5 - Hyperlipidemia, unspecified, I10 - Essential (primary) hypertension, I48.91 - Unspecified atrial fibrillation, I71.4 - Abdominal aortic aneurysm, without rupture, Z00.00 - Encounter for general adult medical examination without abnormal findings Hemoglobin A1c Today E78.5 - Hyperlipidemia, unspecified, I10 - Essential (primary) hypertension, I48.91 - Unspecified atrial fibrillation, I71.4 - Abdominal aortic aneurysm, without rupture, Z00.00 - Encounter for general adult medical examination without abnormal findings UA w Microscopic Today E78.5 - Hyperlipidemia, unspecified, I10 - Essential (primary) hypertension, I48.91 - Unspecified atrial fibrillation, I71.4 - Abdominal aortic aneurysm, without rupture, Z00.00 - Encounter for general adult medical examination without abnormal findings US abdominal aortic aneurysm Today I71.4 - Abdominal aortic aneurysm, without rupture
[2025-02-03 10:53] VITALS: BP 126/78; PULSE 82; RESP 18; TEMP 36.6; O2SAT 96; BMI 32.5
--- OUTSIDE RECORDS SUMMARY | 2025-02-03 10:57 | XMS_ITS | Encounter Summary ---
Author Organization [facility] Address [address] [place] [address] Care Team Providers Care Drive Worker Name Role Phone Carly Be MD Primary Care Provider [phone] Encounter Details Date Type Department Care Team (Late st Contact Info) Description 10/10/2024 Lab Requisition [facility] - Main Lab [address] [place] [address] Marietta Rodarte NP [address] [address] Benign prostatic hyperplasia with lower urinary tract [...] LAB CHEMISTRY METHOD 10/10/2024 2:42 PM EDT [facility] Blood Venous blood specimen / Unknown 10/10/2024 9:41 AM EDT 10/10/2024 1:43 PM EDT Narrative [facility] - 10/10/2024 2:42 PM EDT The Siemens Advia Centaur Chemiluminescent Immunoassay is used. Results obtained with different assay methods or kits cannot be used interchangeably. Results cannot be interpreted as absolute evidence of the presence or absence of malignant disease. us Marietta Rodarte REHAB OFFICE COORDINATOR LAB BLOOD ORDERABLES Linda gibbons Result [facility] [address] [place] [address], documented in this encounter Visit Diagnoses Diagnosis Benign prostatic hyperplasia with lower urinary tract symptoms documented in this encounter Care Teams Drive Worker Relationship Specialty Start Date End Date Carly Be MD [address] [place] [address] PCP - General Internal Medicine 10/10/24 documented as of this encounter
--- OUTSIDE RECORDS SUMMARY | 2025-02-03 10:57 | XMS_ITS | Clinical Summary ---
Author Organization [address] [facility] Address [address] [place] [address] Phone Care Team Providers Care Communication Arts Lecturer Name Role Phone Carly Be MD Primary Care Provider [phone] Social History Tobacco Use Types Packs/Day Years Used Date Smoking Tobacco: Never Assessed Sex and Gender Information Value Date Recorded Sex Assigned at Not on file Legal Sex Male 6:12 PM EST Gender Identity Not on file Sexual Orientation Not on file Plan of Treatment Health Maintenance Due Date Last Done Comments Colorectal Cancer Screening: Colonoscopy 1955 DTaP,Tdap,and Td Vaccines (1 - Tdap) 1972 Pneumococcal Vaccine: 50+ Ye ars (1 of 1 - PCV) 08/10/2003 Zoster Vaccines (1 of 2) 08/10/2003 Depression Screening 05/07/2024 Abdominal Aortic Aneurysm (A AA) Screen 10/10/2024 Cholesterol Screening (Lipid Panel) 10/10/2024 Falls Risk Assessment 10/10/2024 Hepatitis C Screening 10/10/2024 Social Influencers of Health Screening 10/10/2024 COVID-19 Vaccine ( - 2023-2 5 season) 2025 Influenza Vaccine (#1) 2025 RSV Immunization Adult Patie nts (1 - 1-dose 75+ series) 2028 HIB Vaccines Aged Out No longer eligi ble based on patient's age to complete this topic HPV Vaccines Aged Out No longer eligi ble based on patient's age to complete this topic Hepatitis A Vaccines Aged Out No long er eligible based on patient's age to complete this topic Hepatitis B Vaccines Aged Out No long er eligible based on patient's age to complete this topic IPV Vaccines Aged Out No longer eligi ble based on patient's age to complete this topic MMR Vaccines Aged Out No longer eligi ble based on patient's age to complete this topic Meningococcal ACWY Vaccine Aged Out N o longer eligible based on patient's age to complete this topic Meningococcal B Vaccine Aged Out No l onger eligible based on patient's age to complete this topic RSV Immunization Patients Un sindi 20 months Aged Out No longer eligible b ased on patient's age to complete this topic Varicella Vaccines Aged Out No longer eligible based on patient's age to complete this topic [place] [address] [facility] Care Teams Communication Arts Lecturer Relationship Specialty Start Date End Date Carly Be MD [address] [facility] [place] [address] PCP - General Internal Medicine 10/10/24
--- OUTSIDE RECORDS SUMMARY | 2025-02-03 10:57 | XMS_ITS | Patient Health Record ---
Author Organization [facility] Address [address] [place] [address] Care Team Providers Care Director Home Health Name Role Phone Carly Be MD Primary Care Provider Grupo Waldrop Jr Unavailable Allergies No Known Allergies Reason For Referral [...] Problem Status W/U Status Risk Notes Problem [id number] Colon cancer screening (Z12.11) Active confirmed Problem [id number] prison (curre nt) use of anticoagulants (Z79.01) Active confirmed Problem [id number] Personal history of colonic polyps (Z86.010) Active confirmed Plan Of Treatment Future Test Test Name Order Date COLONOSCOPY 07/18/2012 COLONOSCOPY 06/13/2018 COLONOSCOPY 08/30/2023 Insurance Providers Payer Name Payer Address Payer Phone Subscriber Number Group Number Insured Name Patient Relationship to Insured Coverage Start Date Coverage End Date [facility] [address] [place] [phone] [id number] KING SOLANO Self - patient is the insured Medical (General) History Medical History History ICD Code colonoscopy 09/22, normal, fi ve-year followup because of personal history of colon polyps. hypertension pilonidal cyst BPH Afib Surgical History Surgery Date(Month/Year) cyst removed from back
== END 2025-02-03 11:57 | disposition home or self-care (01) ==
LOC: HO.HMCC 09:59
PROVIDERS: PCP Internal Medicine; Visit Provider Internal Medicine
DX: Z00.00 Encounter for general adult medical examination without abnormal findings (principal); I48.91 Unspecified atrial fibrillation; I10 Essential (primary) hypertension; E78.5 Hyperlipidemia, unspecified; I71.40 Abdominal aortic aneurysm, without rupture, unspecified; I77.810 Thoracic aortic ectasia; Z23 Encounter for immunization

== ENCOUNTER 2025-02-03 09:58 | Outpatient (REF) | payer MEDICARE, SELFPAY ==
[2025-02-03 13:18] LABS: MANUAL DIFF FLAG NO
[2025-02-03 13:42] LABS: Hematocrit 45.5 % (42.0-52.0); Hemoglobin 15.7 g/dl (14.0-18.0); Imm Gran Abs Auto 0.03 X10*3/uL (0.00-0.03); Imm Gran Pct Auto 0.4 % (0.0-0.4); Lymphocytes Absolute Auto 2.0 X10*3/uL (1.2-4.9); Mean Corpuscular HGB Conc 34.5 g/dl (31.0-36.0); Mean Corpuscular Hemoglobin 30.3 pg (27.0-33.0); Mean Corpuscular Volume 87.8 fL (80.0-98.0); NRBC Abs Auto 0.000 X10*3/uL (0.0-0.012); NRBC Pct Auto 0.0 /100WBC (0.0-0.2); Platelet Count 219 X10*3/uL (160-400); Red Blood Count 5.18 X10*6/uL (4.60-5.80); White Blood Count 6.8 X10*3/uL (4.8-10.8)
[2025-02-03 13:48] LABS: Hemoglobin A1C 152.3199 umol/L; Total Hemoglobin (HGBA1C) 4025.0877 umol/L
[2025-02-03 14:16] LABS: Alanine Aminotransferase 22 U/L (0-40); Albumin Level 4.4 g/dL (3.5-5.0); Alkaline Phosphatase 64 U/L (39-117); Anion Gap 10 (12-20); Aspartate Amino Transferase 27 U/L (5-37); Blood Urea Nitrogen 12 mg/dL (9-16); Calcium 9.2 mg/dL (8.4-10.2); Carbon Dioxide 22 mmol/L (22-29); Chloride 113 mmol/L (96-108); Cholesterol 125 mg/dL (<200); Estimated Glomerular Filt Rate > 60; HDL Cholesterol 37 mg/dL (>40); Potassium 4.4 mmol/L (3.3-5.1); Sodium 141 mmol/L (135-145); Total Protein 6.8 g/dL (6.5-8.0); Triglycerides 45 mg/dL (<150)
[2025-02-03 14:44] LABS: PSA,Total (Free>4and<10) 1.26 ng/mL (0.00-4.00)
[2025-02-03 17:31] LABS: Appearance Urine Clear; Glucose Urine UA Negative (Negative); PH 5.5 (5.0-9.0); Specific Gravity - Urine 1.015 (1.005-1.025)
== END 2025-02-03 09:59 | disposition home or self-care (01) ==
LOC: HO.HMGCLDS 09:58
PROVIDERS: PCP Internal Medicine; Visit Provider Internal Medicine
DX: Z12.5 Encounter for screening for malignant neoplasm of prostate (principal); Z23 Encounter for immunization; Z00.00 Encounter for general adult medical examination without abnormal findings; I77.810 Thoracic aortic ectasia; I10 Essential (primary) hypertension; I48.91 Unspecified atrial fibrillation; E78.5 Hyperlipidemia, unspecified; I71.40 Abdominal aortic aneurysm, without rupture, unspecified; Z79.01 Long term (current) use of anticoagulants; Z79.899 Other long term (current) drug therapy
CPT/HCPCS: 36415; 80053; 80061; 81001; 83036; 84153; 85025; 90471; 90677; 99397

== ENCOUNTER → 2025-03-06 07:52 | Outpatient (REF) | payer MEDICARE, SELFPAY ==
--- OUTSIDE RECORDS SUMMARY | 2023-09-28 06:50 | XMS_ITS ---
Author Organization [facility] Address [address] [place] [phone] Care Team Providers Care Stationary Engineer Apprentice Name Role Phone [place] FROST, Carly Primary Care Provider Grupo Waldrop Jr [phone] REASON FOR VISIT screening,hx polyps Encounters Encounter Location Date Provider Diagnosis [facility] [place] [address] [place] [phone] 09/28/2023 Grupo Dover Jr Encounter for screening [...] SACHI SOLANOO LDOB:[birth year] (69 yo M)Acc No.[id number]:09/28/2023 COLON WITH MAC Patient: KING ORDAZ Provider: Elieser Dover MD :1955 A ge:68 Y S ex:Male Date:09/28/2023 Address:[address] [place], [place] [phone] Pcp:Carly Be MD Subjective: * Chief Complaints: * 1 . Screening,hx polyps. * Medical History: Objective: * Vitals: Assessment: * Assessment: 1. E ncounter for screening colonoscopy - Z12.11 (Primary) 2 . C olon polyps - K63.5 3 . P ersonal history of colonic polyps - Z86.010 Plan: * Treatment: * Procedure Codes: 4 5385 LESION REMOVAL COLONOSCOPY * Preventive Medicine: KINZA Screening: C olonoscopy W as interval between colonoscopies three years or more? Y es, W as last colonoscopy performed three or more years ago? Y es. * * The named appointment provid er may or may not be the originator of this progress note, and it is not deemed complete until electronically signed by the appointment provider. Sign off status: Pending * Provider: Elieser Dover MD Date: 0 09/28/2023 Generated for Gregory reyes/Shawna/Nessitting on: 07:54 AM EDT
--- NOTE | 2025-03-06 07:54 | CA_ITS ---
Transthoracic Echocardiogram Patient (Last, First, Middle): Michael Hutton L Gender: M Date of : 1955 Age: 69 Procedure Date: 03/06/2025 Procedure Type: Transthoracic Echocardiogram Location: OP Height: 182.88 cm Weight: 107.96 kg BSA: 2.29 m2 Heart Rate: bpm BP: 110 / 62 mmHg Records Management Associate: TO Referring MD: Carly Be MD Symptoms: I10 - Essential (primary) hypertension Study Quality: Fair/Contrast ECG Rhythm: Sinus Conclusions: - The left ventricular systolic function is normal. The calculated ejection fraction is 57% by biplane method. - The left atrium is severely dilated. - No obvious valvular pathology seen on this study. - There is mild dilatation of the ascending aorta measuring 4.30 cm. Findings Procedure Information Contrast agent, definity, is being given per protocol without apparent complications. Left Ventricle Normal left ventricular cavity size. The left ventricular systolic function is normal. The calculated ejection fraction is 57% by biplane method. There is no evidence of regional wall motion abnormalities. Diastolic function is indeterminate on the basis of available data. There is mild septal asymmetric hypertrophy. Right Ventricle Mildly increased right ventricular cavity size. There is normal right ventricular systolic function. Atria The left atrium is severely dilated. The right atrium is mildly dilated. Aortic Valve There is a normal trileaflet aortic valve. There is mild calcification of the aortic valve. There is no aortic valve stenosis. There is no aortic valve regurgitation. Mitral Valve The mitral valve appears normal. There is no mitral valve regurgitation. There is no mitral valve stenosis. Pulmonic Valve The pulmonic valve is likely normal. Tricuspid Valve There is mild tricuspid valve regurgitation. There is no evidence of pulmonary hypertension. Great Vessels There is mild dilatation of the ascending aorta measuring 4.30 cm. Small plaque is seen in the sino tubular ridge. Venous The inferior vena cava is mildly dilated and collapses less than 50% with inspiration. Prior Study Comparison No prior study available for comparison. Recommendations, Care & Conclusions No obvious valvular pathology seen on this study. Measurements 2D Linear Measurements IVSd: 1.19 0.6-0.9/0.6-1.0 cm LVIDd: 4.66 3.9-5.3/4.2-5.9 cm LVIDd Index: 2.03 2.4-3.2/2.2-3.1 cm/m2 LVIDs: 3.51 2.0-3.6 cm LVPWd: 0.90 0.7-1.1 cm LA Diam: 4.10 2.7-3.8/3.0-4.0 cm LAIDs Index: 1.79 1.5-2.3 cm/m2 LV Mass: 215.18 67-162/88-224 g LV Mass Index: 93.96 43-95/49-115 g/m2 LVOT Diam: 2.40 3.0+(-)1.3 cm 2D Systolic Function EF 4C: 64.20 >55% EF 2C: 43.80 >55% EF BiP: 56.90 >55% Mitral Valve MV Pk E: 0.78 MV Decel Time: 186.00 E'Lateral: 8.92 E'Medial: 7.00 E/E' Med: 11.10 E/E' Lat: 8.70 PHT: 54.00 MVA PHT: 4.07 Decel Charles: 4.29 Aortic Valve AoV Pk Perico: 0.91 AoV Pk Grad: 3.00 LVOT LVOT Pk Perico: 0.64 LVOT Mn Perico: 0.42 LVOT VTI: 0.14 LVOT Pk Grad: 2.00 LVOT Mn Grad: 1.00 LVOT Diam: 2.40 LVOT Area: 4.52 Diastolic Function MV Pk E: 0.78 E'Medial: 7.00 E/E' Med: 11.10 E' Laterial: 8.92 E/E' Lat: 8.70 Right Ventricle TAPSE (mm): 17.30 TVS' Perico: 11.10 Tricuspid Valve TR Pk Perico: 2.08 TR Pk Grad: 17.00 RA Press: 8.00 RVSP: 25.00 Great Vessels Aorta Sinus of Valsalva: 3.66 2.0-3.[address] Ridge: 2.83 1.7-3.4 cm Ao Asc: 4.30 2.1-3.4 cm Updated in Other Vendor System with Status of Final Sergio Rosales MD electronically signed on 03/07/2025 12:58:56 PM with status of Final
--- OUTSIDE RECORDS SUMMARY | 2025-03-06 07:54 | XMS_ITS | Clinical Summary ---
Author Organization [address] [facility] Address [address] [place] [address] Phone Care Team Providers Care Software Product Manager Name Role Phone Carly Be MD Primary Care Provider [phone] Social History Tobacco Use Types Packs/Day Years [...] patient's age to complete this [place] [address] [facility] Care Teams Software Product Manager Relationship Specialty Start Date End Date Carly Be MD [address] [facility] [place] [address] PCP - General Internal Medicine 10/10/24
--- OUTSIDE RECORDS SUMMARY | 2025-03-06 07:54 | XMS_ITS | Patient Health Record ---
Author Organization [facility] Address [address] [place] [address] Care Team Providers Care Fuel Oil Clerk Name Role Phone Carly Be MD Primary Care Provider Grupo Waldrop Jr Unavailable Allergies No Known Allergies Reason For Referral No Information Medications Medication SIG (Take, Route, Frequency, Duration) Notes Start Date End Date Status Tamsulosin HCl 0.4 MG Oral; Duration: 90 Active MiraLax (colon prep) 17 GM/SCOOP mixed with Gatorade or Crystal Light Orally begin at 5:00 p.m. the day before the procedure; Duration: 1 day 08/30/2023 Active Finasteride 5 MG Oral; Duration: 90 Active Rosuvastatin Calcium 10 MG Oral; Duration: 90 Active Valsartan 80 MG Oral; Duration: 90 Active Eliquis 5 MG Oral; Duration: 90 Active Metoprolol Succinate ER 50 MG Oral; Duration: 90 Active Immunizations Vaccine Route Administration Date Status Comme nts Influenza Unknown 02/04/2018 Administered Problems Problem Type SNOMED Code ICD Code Onset Dates Problem Status W/U Status Risk Notes Problem Colon cancer screening (202006365) Colon cancer screening (Z12.11) Active confirmed Problem Long-term current use of anticoagulant (477516545) [facility] (current) use of anticoagulants (Z79.01) Active confirmed Problem History of polyp of colon (situation) (318973306) Personal history of colonic polyps (Z86.010) Active confirmed Plan Of Treatment Future Test Test Name Order Date COLONOSCOPY 07/18/2012 COLONOSCOPY 06/13/2018 COLONOSCOPY 08/30/2023 Insurance Providers Payer Name Payer Address Payer Phone Subscriber Number Group Number Insured Name Patient Relationship to Insured Coverage Start Date Coverage End Date [facility] [address] [place] [phone] [id number] KING SOLANO Self - patient is the insured Medical (General) History Medical History History ICD Code colonoscopy 09/22, normal, fi ve-year followup because of personal history of colon polyps. hypertension pilonidal cyst BPH Afib Surgical History Surgery Date(Month/Year) cyst removed from back
--- OUTSIDE RECORDS SUMMARY | 2025-03-06 07:55 | XMS_ITS | Encounter Summary ---
Author Organization [facility] Address [address] [place] [address] Care Team Providers Care Painter And Grader Cork Name Role Phone Carly Be MD Primary Care Provider [phone] Encounter Details Date Type Department Care Team (Late st Contact Info) Description 10/10/2024 Lab Requisition [facility] - Main Lab [address] [place] [address] Marietta Rodarte NP [address] [address] Benign prostatic hyperplasia with lower urinary tract [...] LAB CHEMISTRY METHOD 10/10/2024 2:42 PM EDT [facility] Blood Venous blood specimen / Unknown 10/10/2024 9:41 AM EDT 10/10/2024 1:43 PM EDT Narrative [facility] - 10/10/2024 2:42 PM EDT The Siemens Advia Centaur Chemiluminescent Immunoassay is used. Results obtained with different assay methods or kits cannot be used interchangeably. Results cannot be interpreted as absolute evidence of the presence or absence of malignant disease. us Marietta Rodarte CLINICAL SCIENCES PROFESSOR LAB BLOOD ORDERABLES Linda gibbons Result [facility] ([facility]) [facility] [address] [place] [address], documented in this encounter Visit Diagnoses Diagnosis Benign prostatic hyperplasia with lower urinary tract symptoms documented in this encounter Care Teams Painter And Grader Cork Relationship Specialty Start Date End Date Carly Be MD [address] [place] [address] PCP - General Internal Medicine 10/10/24 documented as of this encounter
== END ==
LOC: HO.CARD 07:52
PROVIDERS: PCP Internal Medicine; Visit Provider Internal Medicine
DX: Z00.00 Encounter for general adult medical examination without abnormal findings (principal); I10 Essential (primary) hypertension; I48.91 Unspecified atrial fibrillation; I71.40 Abdominal aortic aneurysm, without rupture, unspecified; E78.5 Hyperlipidemia, unspecified
CPT/HCPCS: 93306; Q9957

== ENCOUNTER → 2025-03-06 07:54 | Outpatient (BNV) | payer MEDICARE, SELFPAY | PROVIDERS: PCP Internal Medicine; Visit Provider Internal Medicine | DX: I42.2 Other hypertrophic cardiomyopathy (principal); I51.7 Cardiomegaly; I71.21 Aneurysm of the ascending aorta, without rupture | CPT/HCPCS: 93306 ==

== ENCOUNTER 2025-03-27 08:47 | Outpatient (REF) | payer MEDICARE, SELFPAY ==
--- OUTSIDE RECORDS SUMMARY | 2023-09-28 05:50 | XMS_ITS ---
Author Organization [facility] Address [address] [place] [phone] Care Team Providers Care Mathematics Technician Name Role Phone [place] FROST, Carly Primary Care Provider Grupo Waldrop Jr REASON FOR VISIT screening,hx polyps Encounters Encounter Location Date Provider Diagnosis [facility] [place] Outpatient [address] [place] [phone] 09/28/2023 Grupo Dover Jr Encounter for screening colonoscopy Z12.11 ; Colon polyps K63.5 and Personal history of colonic polyps Z86.010 Assessments Encounter Date Diagnosis (ICD Code) Assessment Notes Treatment Notes Treatment Clinical Notes Section Notes 09/28/2023 Encounter for screening colonoscopy (ICD-10 - Z12.11) 09/28/2023 Colon polyps (ICD-10 - K63.5) 09/28/2023 Personal history of colonic polyps (ICD-10 - Z86.010) Plan Of Treatment No Information Progress Notes * SACHI SOLANOO LDOB:[birth year] (69 yo M)Acc No.[id number]:09/28/2023 COLON WITH MAC Patient: KING ORDAZ Provider: Elieser Dover MD :1955 A ge:68 Y S ex:Male Date:09/28/2023 Address:[address] [place], [place] [phone] Pcp:Carly Be MD Subjective: * Chief Complaints: * S creening,hx polyps Assessment: * Assessment: 1. E ncounter for screening colonoscopy - Z12.11 (Primary) 2 . C olon polyps - K63.5 3 . P ersonal history of colonic polyps - Z86.010 Plan: * Procedure Codes: 4 5385 LESION REMOVAL COLONOSCOPY * Preventive Medicine: KINZA Screening: C olonoscopy W as interval between colonoscopies three years or more? Y es, W as last colonoscopy performed three or more years ago? Y es. Billing Information: * Procedure Codes: 98603 LESION REMOVAL COLONOSCOPY. * The named appointment provid er may or may not be the originator of this progress note, and it is not deemed complete until electronically signed by the appointment provider. Sign off status: Pending * Provider: Elieser Dover MD Date: 0 09/28/2023 Generated for Gregory reyes/Shawna/Nessitting on: 05/27/2024 08:50 AM EST
--- NOTE | ~2025-03-27 | US_ITS ---
CLINICAL HISTORY: I71.4 - Abdominal aortic aneurysm, without rupture US Abdomen (AAA) Comparison: CT/GA/SR - CT ABDOMEN PELVIS WITH IV CONTRAST - 11/07/23 18:41 EDT Findings: Aorta proximal 2.9 x 2.4 cm. Aorta mid 2 x 2.2 cm. Aorta distal 1.7 x 1.5 cm. Right common iliac artery 1.2 x 1.2 cm. Left common iliac artery 1.1 x 1.7 cm. Aorta peak systolic velocity 68 cm/sec. No periaortic fluid or collections. IMPRESSION: 1. No abdominal aortic aneurysm. This document has been electronically signed by: Dominick Hines MD on 03/27/2025 09:35:52
--- OUTSIDE RECORDS SUMMARY | 2025-03-27 08:50 | XMS_ITS | Encounter Summary ---
Author Organization [facility] Address [address] [place] [address] Care Team Providers Care Service Greeter Name Role Phone Carly Be MD Primary Care Provider [phone] Encounter Details Date Type Department Care Team (Late st Contact Info) Description 10/10/[address] [facility] - Main Lab [address] [place] [address] Marietta Rodarte NP [address] [address] Benign prostatic hyperplasia with lower urinary tract [...] LAB CHEMISTRY METHOD 10/10/2024 2:[address] [facility] Blood Venous blood specimen / Unknown 10/10/2024 9:41 AM EDT 10/10/2024 1:[address] [facility] - 10/10/2024 2:42 PM EDT The Siemens Advia Centaur Chemiluminescent Immunoassay is used. Results obtained with different assay methods or kits cannot be used interchangeably. Results cannot be interpreted as absolute evidence of the presence or absence of malignant disease. us Marietta Rodarte END FINDER FORMING DEPARTMENT LAB BLOOD ORDERABLES Linda gibbons Result [facility] ([facility]) [facility] [address] [place] [address], documented in this encounter Visit Diagnoses Diagnosis Benign prostatic hyperplasia with lower urinary tract symptoms documented in this encounter Care Teams Service Greeter Relationship Specialty Start Date End Date Carly Be MD [address] [place] [address] PCP - General Internal Medicine 10/10/24 documented as of this encounter
--- OUTSIDE RECORDS SUMMARY | 2025-03-27 08:50 | XMS_ITS | Patient Health Record ---
Author Organization [facility] Address [address] [place] [address] Care Team Providers Care Apartment Leasing Manager Name Role Phone Carly Be MD Primary Care Provider Grupo Waldrop Jr Unavailable Allergies No Known Allergies Reason For Referral No Information Medications Medication SIG (Take, Route, Frequency, Duration) Notes Start Date End Date Status Tamsulosin HCl 0.4 MG Capsule Oral; Duration: 90 Active MiraLax (colon prep) 17 GM/SCOOP Powder mixed with Gatorade or Crystal Light Orally begin at 5:00 p.m. 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[employer] Notes: very occasional beer Problems Problem Type SNOMED Code ICD Code Onset Dates Problem Status W/U Status Risk Notes Problem Colon cancer screening (827521333) Colon cancer screening (Z12.11) Active confirmed Problem Long-term current use of anticoagulant (126274696) intermediate manager (current) use of anticoagulants (Z79.01) Active confirmed Problem History of polyp of colon (situation) (317322614) Personal history of colonic polyps (Z86.010) Active confirmed Plan Of Treatment Future Test Test Name Order Date COLONOSCOPY 07/18/2012 COLONOSCOPY 06/13/2018 COLONOSCOPY 08/30/2023 Insurance Providers Payer Name Payer Address Payer Phone Subscriber Number Group Number Insured Name Patient Relationship to Insured Coverage Start Date Coverage End Date [facility] [address] [facility] [phone] [id number] KING SOLANO Self - patient is the insured Medical (General) History Medical History History ICD Code colonoscopy 09/22, normal, fi ve-year followup because of personal history of colon polyps. hypertension pilonidal cyst BPH Afib Surgical History Surgery Date(Month/Year) cyst removed from back
--- OUTSIDE RECORDS SUMMARY | 2025-03-27 08:51 | XMS_ITS | Clinical Summary ---
Author Organization [address] [facility] Address [address] [place] [address] Phone Care Team Providers Care Log Buyer Name Role Phone Carly Be MD Primary Care Provider [phone] Social History Tobacco Use Types Packs/Day Years [...] Influencers of Health Screening 10/10/2024 COVID-19 Vaccine (1 - 2024-2 6 season) 2025 Influenza Vaccine (#1) 2025 RSV [...] patient's age to complete this topic [place] [address] [facility] Care Teams Log Buyer Relationship Specialty Start Date End Date Carly Be MD [address] [facility] [place] [address] PCP - General Internal Medicine 10/10/24
== END 2025-03-27 08:48 | disposition home or self-care (01) ==
LOC: HO.HMGCX 08:47
PROVIDERS: PCP Internal Medicine; Visit Provider Internal Medicine
DX: I71.40 Abdominal aortic aneurysm, without rupture, unspecified (principal)
CPT/HCPCS: 76706

== ENCOUNTER → 2025-03-27 08:49 | Outpatient (BNV) | payer MEDICARE, SELFPAY | PROVIDERS: PCP Internal Medicine; Visit Provider Radiology Diagnostic Radiology | DX: I71.40 Abdominal aortic aneurysm, without rupture, unspecified (principal) | CPT/HCPCS: 76706 ==